=== PATIENT | male | born 1965 | race Caucasian/White ===

== ENCOUNTER → 2016-09-20 | Outpatient (CLI) | payer BC ==
[~2016-09-20] MED LIST: CPR500HP PO; HYDR-4383 PO; LAMO200T38 PO; LAMO25TA PO; LISI-725 PO; METH4PAK PO; MTR500 PO; NXM/40 PO; PRAV20TA PO; PRAV40TA2 PO
[2016-09-22 15:49] LABS: URCREATININE 151.3 MG/DL (>/= 20)
== END | disposition home or self-care (01) ==
LOC: C.LAB 09:02
PROVIDERS: ATTEND Family Medicine
DX: Z51.81 Encounter for therapeutic drug level monitoring (principal); Z79.899 Other long term (current) drug therapy

== ENCOUNTER → 2016-12-24 | Outpatient (CLI) | payer BC ==
[~2016-12-24] MED LIST changes: -METH4PAK PO; -NXM/40 PO
[2016-12-24 14:47] LABS: BASO % 0.4 %; BASO ABS # 0.03 K/uL (0-0.2); COMPLETE YES; EOS % 2.1 %; HEMATOCRIT 42.2 % (42-52); LYMPH ABS # 2.53 K/uL (1.2-3.4); MEAN CELL VOLUME 91.9 fL (80-100); MEAN CORPUSCULAR HEMOGLOBIN 30.3 pg (25-34); MEAN CORPUSCULAR HGB CONC 32.9 g/dl (32-36); MEAN PLATELET VOLUME 9.7 fL (7.4-10.4); MONO % 9.2 %; NEUT % 57.3 %; PLATELET COUNT 295 K/uL (130-400); RED BLOOD COUNT 4.59 M/uL (4.7-6.1); WHITE BLOOD COUNT 8.17 K/uL (4.8-10.8)
[2016-12-24 15:25] LABS: ALT/SGPT 43 U/L (12-78); AST/SGOT 16 U/L (15-37); BLOOD UREA NITROGEN 15 mg/dl (7-18); BUN/CREATININE RATIO 17.1 (10-20); CALCIUM 9.1 mg/dl (8.5-10.1); CARBON DIOXIDE 28 mmol/L (21-32); CHLORIDE 109 mmol/L (98-107); CREATININE 0.88 mg/dl (0.60-1.40); GLUCOSE 80 mg/dl (70-99); MAGNESIUM 2.5 mg/dl (1.8-2.4); POTASSIUM 3.8 mmol/L (3.5-5.1); SODIUM 142 mmol/L (136-145)
[2016-12-24 15:39] LABS: ALB/GLOB RATIO 1.1 (0.9-2); ALKALINE PHOSPHATASE 66 U/L (45-117); FERRITIN 98.5 ng/ml (8.0-388.0)
== END | disposition home or self-care (01) ==
LOC: C.LAB1850 13:55
PROVIDERS: ATTEND Nurse Practitioner Family
DX: M79.1 Myalgia (principal)

== ENCOUNTER → 2016-12-25 | Outpatient (CLI) | payer BC | END | disposition home or self-care (01) | LOC: C.LABSPEC 12-24 11:01 | PROVIDERS: ATTEND Nurse Practitioner Family | DX: J02.9 Acute pharyngitis, unspecified (principal) ==

== ENCOUNTER 2017-02-27 16:10 | Inpatient (IN) | payer BC ==
[~2017-02-27] VITALS: Ht 167.6 cm; Wt 103.0 kg
[~2017-02-27 16:10] MED LIST changes: -PRAV40TA2 PO
[2017-02-27] MEDS ORDERED: LIDOCAINE/EPINEPHRINE 1% 20 ML VIAL ONE (16:43)
[2017-02-27] MEDS ORDERED: CEFTRIAXONE SOD INJ 1 GM ADDVIAL IV STA (17:12)
[2017-02-27] MEDS ORDERED: KETOROLAC TROMETHAMINE 30 MG/ML VIAL IV STA (17:28)
[2017-02-27 17:44] LABS: BASO % 0.2 %; BASO ABS # 0.02 K/uL (0-0.2); COMPLETE YES; EOS % 0.1 %; HEMATOCRIT 44.5 % (42-52); IG% 0.2 %; LYMPH % 18.1 %; LYMPH ABS # 2.26 K/uL (1.2-3.4); MEAN CORPUSCULAR HEMOGLOBIN 30.7 pg (25-34); MEAN CORPUSCULAR HGB CONC 33.7 g/dl (32-36); MEAN PLATELET VOLUME 9.8 fL (7.4-10.4); NEUT % 73.4 %; PLATELET COUNT 287 K/uL (130-400); RED BLOOD COUNT 4.89 M/uL (4.7-6.1); WHITE BLOOD COUNT 12.49 K/uL (4.8-10.8)
[2017-02-27] MEDS ORDERED: LIDO/EPINEPHRINE/SOD BICARB 20 ML VIAL INFIL ONE (17:49)
[2017-02-27] MEDS ORDERED: MoRPHine SULFATE 2 MG/ML CARP IV PRN (18:00)
[2017-02-27 18:04] LABS: BUN/CREATININE RATIO 13.4 (10-20); C-REACTIVE PROTEIN 2.18 mg/dl (0-0.29); CREATININE 0.95 mg/dl (0.60-1.40); POTASSIUM 3.6 mmol/L (3.5-5.1)
[2017-02-27] MEDS ORDERED: MoRPHine SULFATE 4 MG/ML 1 ML CARP\\VIAL IV STA (18:16)
--- NOTE | 2017-02-27 18:24 | DIAGNOSTIC IMAGING REPORT ---
R LOWER EXTREMITY WITHOUT HISTORY: 51 years-old Male knee infection/abscess? Acute infection with concern for possible abscess. COMPARISON: Right knee radiographs 11/05/2016 TECHNIQUE: Multiple axial CT images of the right lower extremity were obtained without IV contrast. A dose lowering technique was used consistent with the principals of ROBBIN. 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 No acute fracture, dislocation or significant osteoarthritis is identified. No intra-articular loose body is identified. No osteochondral defect is seen. There is prominent subcutaneous edema about the knee, most pronounced anteriorly extending both medially and laterally. Focal area of ill-defined fluid involves the prepatellar tissues, 4.1 x 1.4 x 5.3 cm in transverse, AP and craniocaudal dimensions respectively. There is a moderate joint effusion. Ligaments about the knee are grossly unremarkable, however without intra-articular contrast, sensitivity is very low compared to that of MR. There is minimal spurring of the lateral femoral condyle the expected insertion site of the lateral collateral ligament. IMPRESSION: 1. Moderate joint effusion is noted in conjunction with moderate soft tissue swelling about the knee and a focal prepatellar fluid collection measuring up to 4.1 x 1.4 x 5.3 cm. These findings may be posttraumatic with prepatellar bursitis, however are nonspecific. Underlying infectious etiology cannot be determined by imaging alone. 2. 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 3. No acute fracture, dislocation or significant osteoarthritis. The above report was generated using voice recognition software. It may contain grammatical, syntax or spelling errors. Electronically signed by: Len Howard M.D. 02/27/2017 6:22 PM Dictated Date/Time: 02/27/2017 6:15 PM
[2017-02-27] MEDS ORDERED: VANCOMYCIN INJ 2,500 MG in SODIUM CHLORIDE 0.9% 500ML 500 ML IV STA (18:32)
[2017-02-27] MEDS ORDERED: VANCOMYCIN CONSULT ACTIVE PRN (18:45)
[2017-02-27] MEDS ORDERED: VANCOMYCIN INJ 1,500 MG in SODIUM CHLORIDE 0.9% 500ML 500 ML IV ONE (18:45)
[2017-02-27] MEDS ORDERED: PRAV40TA2 PO ×2 (18:45)
--- NOTE | 2017-02-27 18:45 | EMERGENCY ROOM VISIT NOTE ---
History Report prepared by Britt: Tyalor Mills Under the Supervision of: Dr. Alex Loving D.O. First contact with patient: 16:37 Chief Complaint: KNEEPAIN Stated Complaint: KNEE PAIN History of Present Illness The patient is a 51 year old male who presents to the Emergency Room with complaints of constant right knee pain beginning a 2 days ago. The patient states that he was seen at urgent care today for concern of infection in his right knee and was sent to the ED. He reports that he may have had a splinter in the knee and he did try to dig the splinter out. He complains of fever, redness and swelling. The patient denies any vomiting. He notes that he has been on Cipro and Flagyl for the last few days for a clinical diverticulitis. Source of History: patient Position: knee (right) Quality: other (swelling) Timing: constant Associated Symptoms: + fevers, No vomiting Note: Patient complains of redness and swelling. Review of Systems See HPI for pertinent positives & negatives. A total of 10 systems reviewed and were otherwise negative. Past Medical & Surgical Medical Problems: (1) ANEURYSM NOS (2) HX OF LEUKEMIA NEC (3) Hypertension (4) HYPERTENSION NOS (5) Knee bursitis (6) SYNCOPE AND COLLAPSE (7) Urinary problem Family History Diabetes mellitus FH: heart disease FHx: cancer Hypertension Kidney stones Social History Smoking Status: Never Smoker Alcohol Use: none Drug Use: none Marital Status: Occupation Status: employed Current/Historical Medications Scheduled Hydrocodone/Acetaminophen ([place] 10/325 Tab), 1-2 TAB PO Q4HR PRN Lamotrigine (Lamictal), 200 MG PO BID Lamotrigine (Lamictal), 50 MG PO BID Lisinopril (Zestril), 20 MG PO HS Pravastatin (Pravachol ), 20 MG PO HS Allergies Coded Allergies: No Known Allergies (Verified , 03/03/16) Physical Exam Vital Signs Date Time Temp Pulse Resp B/P (MAP) Pulse Ox O2 Delivery O2 Flow Rate FiO2 02/27/17 16:21 37.5 111 17 137/67 95 Room Air Physical Exam CONSTITUTIONAL/VITAL SIGNS: Reviewed / noted above. GENERAL: Non-toxic in appearance. INTEGUMENTARY: Warm, dry, and [place]. HEAD: Normocephalic. EYES: without scleral icterus or trauma. ENT/OROPHARYNX: clear and moist. LYMPHADENOPATHY/NECK: Is supple without lymphadenopathy or meningismus. RESPIRATORY: Lungs clear and equal. CARDIOVASCULAR: Regular rate and rhythm. GI/ABDOMEN: Soft and nontender. No organomegaly or pulsatile mass. No rebound or guarding. Normal bowel sounds. EXTREMITIES: Warm and well perfused. BACK: No CVA tenderness. NEUROLOGICAL: Diffuse erythema to the anterior portion of the right knee, palpable fluid and tenderness in prepatellar bursa. PSYCHIATRIC: normal affect. MUSCULOSKELETAL: Normally developed with good muscle tone. 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 No acute fracture, dislocation or significant osteoarthritis is identified. No intra-articular loose body is identified. No osteochondral defect is seen. There is prominent subcutaneous edema about the knee, most pronounced anteriorly extending both medially and laterally. Focal area of ill-defined fluid involves the prepatellar tissues, 4.1 x 1.4 x 5.3 cm in transverse, AP and craniocaudal dimensions respectively. There is a moderate joint effusion. Ligaments about the knee are grossly unremarkable, however without intra-articular contrast, sensitivity is very low compared to that of MR. There is minimal spurring of the lateral femoral condyle the expected insertion site of the lateral collateral ligament. IMPRESSION: 1. Moderate joint effusion is noted in conjunction with moderate soft tissue swelling about the knee and a focal prepatellar fluid collection measuring up to 4.1 x 1.4 x 5.3 cm. These findings may be posttraumatic with prepatellar bursitis, however are nonspecific. Underlying infectious etiology cannot be determined by imaging alone. 2. 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 3. No acute fracture, dislocation or significant osteoarthritis. The above report was generated using voice recognition software. It may contain grammatical, syntax or spelling errors. Electronically signed by: Len Howard M.D. 02/27/2017 6:22 PM Dictated Date/Time: 02/27/2017 6:15 PM Laboratory Results 02/27/17 17:18 Red Blood Count 4.89, Mean Corpuscular Volume 91.0, Mean Corpuscular Hemoglobin 30.7, Mean Corpuscular Hemoglobin Concent 33.7, Mean Platelet Volume 9.8, Neutrophils (%) (Auto) 73.4, Lymphocytes (%) (Auto) 18.1, Monocytes (%) (Auto) 8.0, Eosinophils (%) (Auto) 0.1, Basophils (%) (Auto) 0.2, Neutrophils # (Auto) 9.18, Lymphocytes # (Auto) 2.26, Monocytes # (Auto) 1.00, Eosinophils # (Auto) 0.01, Basophils # (Auto) 0.02 02/27/17 17:18 Test 02/27/17 17:18 White Blood Count 12.49 K/uL (4.8-10.8) Red Blood Count 4.89 M/uL (4.7-6.1) Hemoglobin 15.0 g/dL (14.0-18.0) Hematocrit 44.5 % (42-52) Mean Corpuscular Volume 91.0 fL (80-100) Mean Corpuscular Hemoglobin 30.7 pg (25-34) Mean Corpuscular Hemoglobin Concent 33.7 g/dl (32-36) Platelet Count 287 K/uL (130-400) Mean Platelet Volume 9.8 fL (7.4-10.4) Neutrophils (%) (Auto) 73.4 % Lymphocytes (%) (Auto) 18.1 % Monocytes (%) (Auto) 8.0 % Eosinophils (%) (Auto) 0.1 % Basophils (%) (Auto) 0.2 % Neutrophils # (Auto) 9.18 K/uL (1.4-6.5) Lymphocytes # (Auto) 2.26 K/uL (1.2-3.4) Monocytes # (Auto) 1.00 K/uL (0.11-0.59) Eosinophils # (Auto) 0.01 K/uL (0-0.5) Basophils # (Auto) 0.02 K/uL (0-0.2) RDW Standard Deviation 42.9 fL (36.4-46.3) RDW Coefficient of Variation 12.9 % (11.5-14.5) Immature Granulocyte % (Auto) 0.2 % Immature Granulocyte # (Auto) 0.02 K/uL (0.00-0.02) Erythrocyte Sedimentation Rate 17 mm/hr (0-14) Anion Gap 6.0 mmol/L (3-11) Est Creatinine Clear Calc Drug Dose 108.1 ml/min Estimated GFR () 105.5 Estimated GFR (Non- 91.0 BUN/Creatinine Ratio 13.4 (10-20) Calcium Level 9.0 mg/dl (8.5-10.1) C-Reactive Protein 2.18 mg/dl (0-0.29) Laboratory results as stated above per my review. Medications Administered Medications (Trade) Dose Ordered Sig/Nina Route Start Time Stop Time Status Last Admin Dose Admin Ceftriaxone Sodium (Rocephin Inj) 2 gm NOW STAT IV 02/27/17 17:12 02/27/17 17:14 DC 02/27/17 17:12 2 GM Ketorolac Tromethamine (Toradol Inj) 30 mg NOW STAT IV 02/27/17 17:28 02/27/17 17:29 DC 02/27/17 18:12 30 MG Morphine Sulfate (MoRPHine SULFATE INJ) 4 mg NOW STAT IV 02/27/17 18:16 02/27/17 18:18 DC 02/27/17 18:25 4 MG ED Course 1637: Previous medical records were reviewed. The patient was evaluated in room C8. A complete history and physical examination was performed. 1643: Lidocaine/Epinephine 20ml. 1712: Rocephin Inj 2gm IV. 1724: Discussed the patient's case with Dr. Nixon. The patient will be evaluated for further treatment and disposition. 1728: Toradol Inj 30mg IV. 1729: Lidocaine/Epinephrine 20ml INFIL. 1831: On reevaluation, the patient is doing well. I discussed the results and findings with the patient. He verbalized agreement of the treatment plan. I spoke with Dr. Nixon. The patient will be evaluated for further management and care. Medical Decision Differential diagnosis: Etiologies such as cellulitis, abscess, MRSA infection, DVT, necrotizing fasciitis, dermatitis, drug eruption, as well as others were entertained. This is a 51-year-old male who presents to the ED with a chief complaint of a right knee infection. The patient states that he had onset of symptoms on Thursday, 2 days ago. He states that he had a small pimple that he thought might of been associated with a small splinter in the lower aspect of his right anterior knee. The patient states that he tried digging it out but did not find anything. Over the past 2 days, he has developed increasing redness and discomfort. He also reports that he has been on Cipro and Flagyl for the past 6 days for diverticulitis that was diagnosed clinically. The patient denies any vomiting but reports a fever at urgent care today of 101. His vital signs here are stable. He is currently afebrile. The patient's exam reveals red swollen right knee with diffuse anterior erythema and a palpable fluctuant suggesting possible fluid in the bursa. I did attempt drainage of this but could not aspirate any fluid. Anterior approach over the patella was attempted without success. The knee joint was not aspirated. He has range of motion with the right joint that does not appear to cause any discomfort with movement suggesting that he does not have a septic joint. A CT scan of the right knee was performed and the results are noted above. Orthopedics was consulted. The white blood cell count was 12. Chemistry panel was unremarkable. Blood cultures have been obtained. The patient was seen by orthopedics here in the emergency department they attempted additional aspiration of the bursa. The patient is being admitted. He was treated with IV Rocephin and IV vancomycin. Medication Reconcilliation Current Medication List: was personally reviewed by me Blood Pressure Screening Patient's blood pressure: Elevated blood pressure Blood pressure disposition: Elevated BP felt to be situational Consults Time Called: 172 Consulting Physician: Dr. Nixon Returned Call: [phone] Discussed the patient's case with Dr. Nixon. The patient will be evaluated for further treatment and disposition. Impression Primary Impression: Septic bursitis Additional Impression: Cellulitis of right knee Scribe Attestation The scribe's documentation has been prepared under my direction and personally reviewed by me in its entirety. I confirm that the note above accurately reflects all work, treatment, procedures, and medical decision making performed by me. Departure Information Dispostion Being Evaluated By Hospitalist Referrals Berhane Humphrey III, CRNP (PCP) Patient Instructions My [facility] Problem Qualifiers
--- NOTE | 2017-02-27 19:19 | History and Physical ---
History & Physical Date & Time of Service: Feb 27, 2017 at 19:09 Chief Complaint: Knee Pain Primary Care Physician: Berhane Humphrey III, CRNP History of Present Illness 51-year-old male who thought he got a splinter in his knee on Thursday of this week. He dug in in the wound with his knife at home and was unable get a splint throughout. The next day he noticed some area lines like a pimple and was able squeezed out some pus. Since that time his knee is got progressively more painful and he's developed redness in the last day. He went to urgent care earlier today close to his home town who sent him to [facility] emergency room. Patient states he's been feverish at today. His temperature measured at the outside facility was 101F. He's been limping on his leg. She's never had an infection like this before. He is able to move his knee without too much pain. 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 No numbness or tingling down the leg. The pain is located in the anterior aspect of the knee. Sharp in character. Past Medical/Surgical History Medical Problems: (1) ANEURYSM NOS Status: Resolved (2) HX OF LEUKEMIA NEC Status: Resolved (3) Hypertension Status: Chronic (4) HYPERTENSION NOS Status: Resolved (5) SYNCOPE AND COLLAPSE Status: Resolved (6) Urinary problem Status: Chronic Family History Diabetes mellitus FH: heart disease FHx: cancer Hypertension Kidney stones Social History Smoking Status: Never Smoker Drug Use: none Marital Status: Housing status: lives with family Occupational Status: employed Immunizations History of Influenza Vaccine: Unknown History of Tetanus Vaccine?: Unknown History of Pneumococcal: Unknown History of Hepatitis B Vaccine: Unknown Multi-Drug Resistant Organisms History of MDRO: No Allergies Coded Allergies: No Known Allergies (Verified , 02/27/17) Home Medications Scheduled Ciprofloxacin (Ciprofloxacin HCl), 1 TAB PO BID Hydrocodone/Acetaminophen ([place] 10/325 Tab), 1-2 TAB PO Q4HR PRN Lamotrigine (Lamictal), 200 MG PO BID Lamotrigine (Lamictal), 50 MG PO BID Lisinopril (Zestril), 20 MG PO HS Metronidazole (Metronidazole), 1 TAB PO TID Pravastatin Sodium (Pravastatin Sodium), 1 TAB PO HS Review of Systems Constitutional: + fever, + chills Eyes: No worsening of vision ENT: No nasal symptoms Respiratory: No cough Cardiovascular: No chest pain Abdomen: No pain Musculoskeletal: + joint pain, + swelling Genitourinary - Male: No hematuria Neurologic: No numbness/tingling Psychiatric: No substance abuse Endocrine: No fatigue Hematologic / Lymphatic: No abnormal bleeding/bruising Integumentary: No rash Allergic / Immunologic: No food allergies Physical Exam Vital Signs Date Time Temp Pulse Resp B/P (MAP) Pulse Ox O2 Delivery O2 Flow Rate FiO2 02/27/17 18:24 36.9 85 17 134/76 95 Room Air 02/27/17 16:21 37.5 111 17 137/67 95 Room Air Extremities/Musculoskelatal: + inflammation (examination of his right knee reveals swelling in the prepatellar bursa. He has blackened area where he was taking for a splinter. There is some induration about 1 inch diameter area around this. He is able to move his knee from 0-100 range of motion. I he has walks with a antalgic gait. Sensory intact to light touch throughout. Skin is warm and well perfused.) Diagnostics Laboratory Results Results Past 24 Hours Test 02/27/17 17:18 Range/Units White Blood Count 12.49 4.8-10.8 K/uL Red Blood Count 4.89 4.7-6.1 M/uL Hemoglobin 15.0 14.0-18.0 g/dL Hematocrit 44.5 42-52 % Mean Corpuscular Volume 91.0 80-100 fL Mean Corpuscular Hemoglobin 30.7 25-34 pg Mean Corpuscular Hemoglobin Concent 33.7 32-36 g/dl Platelet Count 287 130-400 K/uL Mean Platelet Volume 9.8 7.4-10.4 fL Neutrophils (%) (Auto) 73.4 % Lymphocytes (%) (Auto) 18.1 % Monocytes (%) (Auto) 8.0 % Eosinophils (%) (Auto) 0.1 % Basophils (%) (Auto) 0.2 % Neutrophils # (Auto) 9.18 1.4-6.5 K/uL Lymphocytes # (Auto) 2.26 1.2-3.4 K/uL Monocytes # (Auto) 1.00 0.11-0.59 K/uL Eosinophils # (Auto) 0.01 0-0.5 K/uL Basophils # (Auto) 0.02 0-0.2 K/uL RDW Standard Deviation 42.9 36.4-46.3 fL RDW Coefficient of Variation 12.9 11.5-14.5 % Immature Granulocyte % (Auto) 0.2 % Immature Granulocyte # (Auto) 0.02 0.00-0.02 K/uL Erythrocyte Sedimentation Rate 17 0-14 mm/hr Sodium Level 139 136-145 mmol/L Potassium Level 3.6 3.5-5.1 mmol/L Chloride Level 105 98-107 mmol/L Carbon Dioxide Level 28 21-32 mmol/L Anion Gap 6.0 3-11 mmol/L Blood Urea Nitrogen 13 7-18 mg/dl Creatinine 0.95 0.60-1.40 mg/dl Est Creatinine Clear Calc Drug Dose 108.1 ml/min Estimated GFR () 105.5 Estimated GFR (Non- 91.0 BUN/Creatinine Ratio 13.4 10-20 Random Glucose 100 70-99 mg/dl Calcium Level 9.0 8.5-10.1 mg/dl C-Reactive Protein 2.18 0-0.29 mg/dl Microbiology Results 02/27/17 Blood Culture, Received Pending 02/27/17 Blood Culture, Received Pending Diagnostic Radiology We get a CAT scan of his leg. There is no air in the soft tissues. There is soft tissue stranding and edema in the prepatellar bursa. Impression Assessment and Plan Impression right knee septic prepatellar bursitis. Plan after informed consent was obtained we prepped the leg with Betadine. A 2 cm horizontal incision was made over the area of maximum induration. The prepatellar bursa was explored with a hemostat to break up any loculations. We irrigated the prepatellar bursa with 60 mL syringe and 1 L of normal saline. We then packed the wound with approximately 12 inches of quarter inch wound packing strips. The wound was covered with 4 x 4's ABDs Kerlix and an Delbert wrap. Number next patient be admitted to hospital. His skin to be on IV vancomycin. Pharmacy will dose this. We'll get daily labs to monitor his response he antibiotics. We did take cultures from his wound to his sats which will follow. He also had blood cultures in the ER. Pain will be Mica for pain control with IV morphine when necessary. VTE Prophylaxis VTE Risk Assessment Done? Y/N: Yes Risk Level: Low
[2017-02-27 19:20] VITALS: BP 119/76; PULSE 84; TEMP 36.6; O2SAT 94
[2017-02-27 19:30] VITALS: BP 119/76; PULSE 84; TEMP 36.6; O2SAT 94; Ht 167.6 cm; Wt 103.0 kg
--- NOTE | 2017-02-27 19:35 | Discharge Instructions ---
Discharge Instructions Date of Service Feb 27, 2017. Admission Reason for Admission: R knee septic prepatellar bursitis Discharge Discharge Diagnosis / Problem: R knee septic prepatellar bursitis Discharge Goals Goal(s): Decrease discomfort, Improve function, Increase independence Activity Recommendations Activity Limitations: per Instructions/Follow-up section Lifting Limitations: no more than 25 pounds Exercise/Sports Limitations: gradually increase as tolerated May Resume Sexual Activity: when tolerated Shower/Bathe: no limitations Driving or Machine Use: resume 3 days after discharge Weightbearing Status: Right weightbearing (as tolerated) . Current Hospital Diet Patient's current hospital diet: Regular Diet Discharge Diet Recommended Diet: Regular Diet Procedures Procedures Performed: I&D R knee prepatellar bursa Pending Studies Studies pending at discharge: yes List of pending studies: final culture results Work Instructions Additional Instructions: Off work for 1 week, until 03/07/2017 Medical Emergencies . Who to Call and When: Medical Emergencies: If at any time you feel your situation is an emergency, please call 911 immediately. . Non-Emergent Contact Non-Emergency issues call your: Primary Care Provider Call Non-Emergent contact if: temperature is above 101.5, your pain is worsening, wound has increased redness . "Provider Documentation" section prepared by Álvaro Echols. . VTE Core Measure Inpt VTE Proph given/why not?: Other Anticoagulation (foot pumps) [place] Drug Monitoring Program Search Results: patient reviewed within database
--- NOTE | 2017-02-27 19:59 | Pharmacy Progress Note ---
Pharmacy Abx Initial Consult Date of Service Feb 27, 2017. Pharmacy Dosing Scope Date of Consult: 02/27/17 Consultation requested by: Adilia Stanton Pharmacy is consulted to initiate Vancomycin IV dosing therapy, order appropriate labs and adjust drug dose/frequency. Subjective The patient is a 51 year old male admitted on Feb 27, 2017 at 18:11. Objective Height (Feet): 5 Height (Inches): 10.00 Weight (Kilograms): 103.000 Vital Signs (Past 12Hrs) Vital Signs Past 12 Hours Date Time Temp Pulse Resp B/P (MAP) Pulse Ox O2 Delivery O2 Flow Rate FiO2 02/27/17 19:20 36.6 84 18 119/76 (90) 94 Room Air 02/27/17 18:24 36.9 85 17 134/76 95 Room Air 02/27/17 16:21 37.5 111 17 137/67 95 Room Air Lab Results (24Hrs) Laboratory Tests (24 Hours) Test 02/27/17 17:18 C-Reactive Protein 2.18 mg/dl (0-0.29) H Erythrocyte Sedimentation Rate 17 mm/hr (0-14) H White Blood Count 12.49 K/uL (4.8-10.8) H Red Blood Count 4.89 M/uL (4.7-6.1) Hemoglobin 15.0 g/dL (14.0-18.0) Hematocrit 44.5 % (42-52) Mean Corpuscular Volume 91.0 fL (80-100) Mean Corpuscular Hemoglobin 30.7 pg (25-34) Mean Corpuscular Hemoglobin Concent 33.7 g/dl (32-36) Platelet Count 287 K/uL (130-400) Mean Platelet Volume 9.8 fL (7.4-10.4) Neutrophils (%) (Auto) 73.4 % Lymphocytes (%) (Auto) 18.1 % Monocytes (%) (Auto) 8.0 % Eosinophils (%) (Auto) 0.1 % Basophils (%) (Auto) 0.2 % Neutrophils # (Auto) 9.18 K/uL (1.4-6.5) H Lymphocytes # (Auto) 2.26 K/uL (1.2-3.4) Monocytes # (Auto) 1.00 K/uL (0.11-0.59) H Eosinophils # (Auto) 0.01 K/uL (0-0.5) Basophils # (Auto) 0.02 K/uL (0-0.2) Micro Results Date/Time Source Procedure Growth Status 02/27/17 17:25 Blood Blood Culture Pending Received 02/27/17 17:18 Blood Blood Culture Pending Received 02/27/17 19:19 Abscess Knee Right Gram Stain Pending Ordered 02/27/17 19:19 Abscess Knee Right Bacterial Culture Pending Ordered Risk Factors for Resistance * Antimicrobial use within the last 90 days, Yesika Gracia for diverticulitis Assessment & Plan Assessment 51 year old male initiated on IV vancomycin for knee cellulitis Plan Vancomycin IV * Loading dose: 2,500 mg (25 mg/kg) * Maintenance dose: 1,500 mg IV (~14 mg/kg) every 10 hours * Goal trough level for SST : 10 to 20 mcg/mL depending on c/s * Trough level ordered for 03/01/17 @ 1200 {prior to the 4th maintenance dose} Pharmacy will continue to follow and will adjust dose/frequency as necessary. Thank you.
[2017-02-27] MEDS ORDERED: PRAVASTATIN SOD 20 MG TAB PO SCH (21:00)
[2017-02-27 21:42] VITALS: BP 118/70; PULSE 75; O2SAT 96
[2017-02-27] MEDS: CIPROFLOXACIN 500 MG TAB PO SCH (21:50)
[2017-02-27] MEDS: DOCUSATE SODIUM 100 MG CAP PO SCH (21:50)
[2017-02-27] MEDS: METRONIDAZOLE 500 MG TAB PO SCH (21:50)
[2017-02-27] MEDS: HYDROCODONE/ACETAMI 10/325 TAB PO PRN (21:51)
[2017-02-27] MEDS: LISINOPRIL 20 MG TAB PO SCH (21:53)
[2017-02-27] MEDS: PRAVASTATIN SOD 40 MG TAB PO SCH (21:53)
[2017-02-27 23:00] VITALS: BP 121/69; PULSE 65; TEMP 36.8; O2SAT 93
[2017-02-28 03:15] VITALS: BP 120/74; PULSE 56; TEMP 36.8; O2SAT 94
[2017-02-28] MEDS: VANCOMYCIN INJ 1,500 MG in SODIUM CHLORIDE 0.9% 500ML 500 ML IV SCH ×2 (05:08→15:34)
[2017-02-28] MEDS: HYDROCODONE/ACETAMI 10/325 TAB PO PRN ×5 (05:08→23:23)
[2017-02-28 07:10] LABS: HEMATOCRIT 38.9 % (42-52); MEAN CELL VOLUME 92.8 fL (80-100); MEAN CORPUSCULAR HEMOGLOBIN 30.3 pg (25-34); MEAN CORPUSCULAR HGB CONC 32.6 g/dl (32-36); MEAN PLATELET VOLUME 9.8 fL (7.4-10.4); PLATELET COUNT 255 K/uL (130-400); RED BLOOD COUNT 4.19 M/uL (4.7-6.1); WHITE BLOOD COUNT 11.09 K/uL (4.8-10.8)
[2017-02-28 08:00] VITALS: BP 126/75; PULSE 63; TEMP 36.8; O2SAT 94
[2017-02-28] MEDS: CIPROFLOXACIN 500 MG TAB PO SCH ×2 (08:51→21:13)
[2017-02-28] MEDS: METRONIDAZOLE 500 MG TAB PO SCH ×3 (08:52→21:13)
[2017-02-28] MEDS: DOCUSATE SODIUM 100 MG CAP PO SCH ×2 (08:52→21:13)
[2017-02-28] MEDS: MoRPHine SULFATE 4 MG/ML 1 ML CARP\\VIAL IV PRN (11:03)
--- NOTE | 2017-02-28 11:24 | Progress Note ---
Progress Note Date of Service Feb 28, 2017. Progress Note Subjective: Mr. Armstrong did well overnight. He doesn't have any fevers. He says his overall body aches feel better than they were yesterday. However he still has some discomfort in his knee. Objective his dressings taken down on the right knee. He still some redness in the prepatellar bursa area. However there is no extending cellulitis onto his thigh or down onto his calf. The wound packing strip is removed. There is no purulent drainage from the wound. Approximately 3 inches of new packing strip was inserted. The wound was covered with new 4 x 4's Kerlix and an Delbert wrap. He's distally neurovascularly intact. He is able tolerate small range of motion. He is able to put some weight on the leg but this is uncomfortable for him. Results reviewed CRP is slightly elevated this morning compared yesterday at 3.3. However his white count is down from 12-11. His Gram stain from the wound cultures retook yesterday are both showing gram-positive cocci but we don' t have the final results back yet. Assessment and plan 51-year-old male with septic right knee prepatellar bursitis improving on IV vancomycin. Patient will continue on vancomycin dosed per pharmacy's recommendation. He has a trough scheduled for tomorrow. We'll continue to follow his cultures. He'll work with physical therapy. He is weightbearing as tolerated with an assistive device. They will assess whether he is safer with crutches or a walker. He can do range of motion as tolerated. Discharge will be pending the results of his culture as well as clinical improvement in his pain and function as well as laboratories showing his inflammatory markers improving. He may be able to discharge as soon as tomorrow but also could be here until Thursday or Thursday.
[2017-02-28 12:05] VITALS: BP 115/68; PULSE 56; TEMP 36.6; O2SAT 96
[2017-02-28 15:00] VITALS: BP 107/58; PULSE 67; TEMP 37; O2SAT 96
[2017-02-28] MEDS ORDERED: NURSING VERBAL MED ORDER ONE (19:30)
[2017-02-28] MEDS ORDERED: NICOTINE 14 MG/24 HR TDSY TD SCH (20:00)
[2017-02-28 21:06] VITALS: BP 136/82; PULSE 66; O2SAT 95
[2017-02-28] MEDS: NICOTINE 21 MG/24 HR TDSY EXT SCH (21:11)
[2017-02-28] MEDS: LISINOPRIL 20 MG TAB PO SCH (21:14)
[2017-02-28] MEDS: PRAVASTATIN SOD 40 MG TAB PO SCH (21:14)
[2017-02-28 23:29] VITALS: BP 132/79; PULSE 61; TEMP 36.5; O2SAT 93
[2017-03-01] MEDS: VANCOMYCIN INJ 1,500 MG in SODIUM CHLORIDE 0.9% 500ML 500 ML IV SCH (01:30)
[2017-03-01 05:58] LABS: HEMATOCRIT 37.6 % (42-52); MEAN CELL VOLUME 93.3 fL (80-100); MEAN CORPUSCULAR HGB CONC 32.2 g/dl (32-36); MEAN PLATELET VOLUME 9.7 fL (7.4-10.4); PLATELET COUNT 240 K/uL (130-400); RED BLOOD COUNT 4.03 M/uL (4.7-6.1); WHITE BLOOD COUNT 10.24 K/uL (4.8-10.8)
[2017-03-01] MEDS: HYDROCODONE/ACETAMI 10/325 TAB PO PRN ×4 (06:38→21:07)
[2017-03-01 06:51] VITALS: BP 128/74; PULSE 67; TEMP 36.6; O2SAT 97
[2017-03-01] MEDS: DOCUSATE SODIUM 100 MG CAP PO SCH ×2 (09:00→21:11)
[2017-03-01] MEDS: METRONIDAZOLE 500 MG TAB PO SCH ×3 (10:31→21:11)
[2017-03-01] MEDS: CIPROFLOXACIN 500 MG TAB PO SCH ×2 (10:31→21:10)
[2017-03-01 11:13] LABS: CREATININE 0.71 mg/dl (0.60-1.40)
[2017-03-01] MEDS ORDERED: ONDANSETRON INJ 2 MG/ML 2 ML VIAL ONE (11:28)
[2017-03-01] MEDS ORDERED: ONDANSETRON INJ 2 MG/ML 2 ML VIAL IV PRN (11:30)
[2017-03-01] MEDS ORDERED: VANCOMYCIN TROUGH SCH (11:30)
[2017-03-01] MEDS: MoRPHine SULFATE 4 MG/ML 1 ML CARP\\VIAL IV PRN (11:33)
--- NOTE | 2017-03-01 11:52 | Orthopedic Progress Note ---
Orthopedic Progress Note Date of Service Mar 01, 2017. Subjective Reports: feeling well, complaints (warmth thigh, unable to weight bear right leg ), nausea / vomiting (mild nausea, no vomiting), Denies: chest pain, SOB, calf pain Additional Notes: States that he's able to move his knee, but hard to weight bear on it due to pain Objective calves soft nontender, N/V intact, capillary refill less than 2 sec., incision C /D/I, A&O x3, toes mobile VSS, afebrile, dressing with scant bloody serous drainage. Packing in place, removed and new iodoform packing applied to right prepatellar bursa. Erythema right thigh and right calf suggestive of cellulitis. No calf tenderness with palpation. No fluctuance palpated, no purulence evacuated from opening in bursa. Warmth to skin. no active drainage. Moves hip and ankle without pain Date Time Temp Pulse Resp B/P (MAP) Pulse Ox O2 Delivery O2 Flow Rate FiO2 03/01/17 07:30 Room Air 03/01/17 06:51 36.6 67 17 128/74 (92) 97 Room Air 02/28/17 23:29 36.5 61 17 132/79 (96) 93 Room Air 02/28/17 23:17 Room Air 02/28/17 21:06 66 136/82 (100) 95 Room Air 02/28/17 16:30 Room Air 02/28/17 15:00 37.0 67 20 107/58 (74) 96 Room Air 02/28/17 12:05 36.6 56 16 115/68 (84) 96 Room Air Laboratory Results 24 Hours: Test 03/01/17 05:30 Hematocrit 37.6 % Hemoglobin 12.1 g/dL Assessment & Plan Assessment: septic right prepatellar bursitis. Cultures resulted with MRSA. s/p I&D at bedside 02/27/17 Plan: Continue elevation right leg. Wound re-packed today. Continue IV Vanco - trough low, pharmacy notified and will increase vanco dose. Zofran ordered for nausea Will consult ID for antibiotic dosing and assistance Continue OOB as tolerated. Allowed WBAT RLE MARY stocking right lower extremity to help with swelling. Regular diet. Seen and evaluated by Dr. Echols today. Will recheck in AM.
[2017-03-01] MEDS ORDERED: VANCOMYCIN INJ 1,650 MG in SODIUM CHLORIDE 0.9% 500ML 500 ML IV SCH (12:30)
[2017-03-01] MEDS ORDERED: VANCOMYCIN INJ 2,000 MG in SODIUM CHLORIDE 0.9% 500ML 500 ML IV SCH (12:30)
--- NOTE | 2017-03-01 14:41 | Pharmacy Progress Note ---
Pharmacy Abx Dose Progress Nt Date of Service Mar 01, 2017. Pharmacy Dosing Scope The patient WAS receiving the following antimicrobial agents per Pharmacy consult: Vancomycin 1500 mg IV every 10 hours. Dosing is now changed due to low trough. Objective Height (Feet): 5 Height (Inches): 6.00 Weight (Kilograms): 103.000 Vital Signs (Past 12Hrs) Vital Signs Past 12 Hours Date Time Temp Pulse Resp B/P (MAP) Pulse Ox O2 Delivery O2 Flow Rate FiO2 03/01/17 07:30 Room Air 03/01/17 06:51 36.6 67 17 128/74 (92) 97 Room Air Lab Results (24Hrs) Item Value Date Time Vancomycin Level Trough 11.3 mcg/ml 03/01/17 1041 Laboratory Tests (24 Hours) Test 03/01/17 05:30 C-Reactive Protein 7.41 mg/dl (0-0.29) H White Blood Count 10.24 K/uL (4.8-10.8) Micro Results Date/Time Source Procedure Growth Status 02/27/17 17:25 Blood Blood Culture - Preliminary NO GROWTH TO DATE. Resulted 02/27/17 17:18 Blood Blood Culture - Preliminary NO GROWTH TO DATE. Resulted 02/27/17 19:00 Abscess Knee Right Gram Stain - Final Resulted 02/27/17 19:00 Bacterial Culture - Preliminary Staphylococcus Aureus Resulted 02/27/17 19:00 Abscess Knee Right Gram Stain - Final Resulted 02/27/17 19:00 Bacterial Culture - Preliminary Staphylococcus Aureus Resulted Assessment & Plan Assessment 51 year old male receiving Vancomycin for treatment of Cellulitis. Day # 3/10 of antimicrobial therapy Plan Vancomycin IV * Trough level of 11.3 mcg/mL drawn at 1041 today is subtherapeutic. * The level was drawn around an hour early so the true trough is probably even lower than 11.3. * Dr. Echols called and said he would like to see a trough closer to 20 mcg/ ml since the Cellulitis is worsening and moving up his leg. Also note that this is a MRSA. * Hence a small load of Vanco 2000 mg (19 mg/kg) IV x 1 was ordered for 1230 today (given at 1300). * Further maintenance dose increased to 1650 mg IV Q8h starting at 2030 today. * Renal function remains stable with Crcl > 100 ml/min. * If patient was to get discharged soon, I would recommend Daptomycin instead of Vancomycin since this would allow for once daily dosing rather than every 8 hour dosing. If the bone/joint is involved then 6 mg/kg dose of Daptomycin would be appropriate. * Trough Vanco level ordered for: 03/02 at 1200. Pharmacy will continue to follow and will adjust dose/frequency as necessary. Thank you.
[2017-03-01 15:00] VITALS: BP 103/60; PULSE 66; TEMP 36.9; O2SAT 95
[2017-03-01 15:30] VITALS: O2SAT 95
[2017-03-01 20:07] VITALS: BP 125/77; PULSE 67; TEMP 36.8; O2SAT 93
[2017-03-01] MEDS: NICOTINE 21 MG/24 HR TDSY EXT SCH (21:00)
[2017-03-01] MEDS: PRAVASTATIN SOD 40 MG TAB PO SCH (21:10)
[2017-03-01] MEDS: LISINOPRIL 20 MG TAB PO SCH (21:10)
[2017-03-01] MEDS: VANCOMYCIN INJ 1,650 MG in SODIUM CHLORIDE 0.9% 500ML 500 ML IV SCH (21:17)
[2017-03-01 23:49] VITALS: BP 126/75; PULSE 67; TEMP 36.6; O2SAT 91
[2017-03-02] MEDS: HYDROCODONE/ACETAMI 10/325 TAB PO PRN ×4 (01:35→20:33)
[2017-03-02] MEDS: VANCOMYCIN INJ 1,650 MG in SODIUM CHLORIDE 0.9% 500ML 500 ML IV SCH ×3 (04:37→20:32)
[2017-03-02 06:17] LABS: HEMATOCRIT 37.6 % (42-52); MEAN CELL VOLUME 93.5 fL (80-100); MEAN CORPUSCULAR HEMOGLOBIN 30.3 pg (25-34); MEAN CORPUSCULAR HGB CONC 32.4 g/dl (32-36); MEAN PLATELET VOLUME 9.5 fL (7.4-10.4); PLATELET COUNT 251 K/uL (130-400); RED BLOOD COUNT 4.02 M/uL (4.7-6.1); WHITE BLOOD COUNT 9.23 K/uL (4.8-10.8)
[2017-03-02 06:47] LABS: CREATININE 0.86 mg/dl (0.60-1.40)
[2017-03-02 06:48] LABS: C-REACTIVE PROTEIN 6.44 mg/dl (0-0.29)
[2017-03-02 07:09] VITALS: BP 113/69; PULSE 55; TEMP 36.6; O2SAT 97
[2017-03-02] MEDS: DOCUSATE SODIUM 100 MG CAP PO SCH ×2 (09:00→20:33)
[2017-03-02] MEDS: METRONIDAZOLE 500 MG TAB PO SCH (09:40)
[2017-03-02] MEDS: CIPROFLOXACIN 500 MG TAB PO SCH (09:42)
[2017-03-02 09:45] VITALS: TEMP 36.4
--- NOTE | 2017-03-02 10:22 | Progress Note ---
Progress Note Date of Service Mar 02, 2017. Progress Note ID Consult Dictated [id number] A/P: 1. Septic Arthritis R knee with abscess - MRSA -cont vanco, stop other abx. -suspect will need additional washout -Will follow, thank you
[2017-03-02] MEDS ORDERED: VANCOMYCIN TROUGH SCH (12:00)
--- NOTE | 2017-03-02 12:47 | INFECT. DISEASE CONSULTATION ---
DATE OF CONSULTATION: 03/02/2017 HISTORY OF PRESENT ILLNESS: This is a 51-year-old gentleman who was admitted after he had worsening right knee pain. 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 Subsequent to that, he had worsening pain, swelling and erythema. He was admitted to the hospital and placed on vancomycin and Flagyl. His white blood cell count has been normal recently at 9.2. His sed rate is mildly elevated at 17. He was found on CAT scan on the to have a 4.1 x 1.4 x 5.3 cm collection. He underwent a bedside I&D and culture from that is growing community-acquired MRSA. He remains on vancomycin. On my examination today, he states he is in significant pain. He continues to have tightness in his knee with erythema, warmth and significant pain. He is ambulating with a walker, but states this has been difficult. He is tolerating his antibiotics well. He has no chest pain, cough, shortness of breath, nausea, vomiting or diarrhea. He is eating without difficulty. He is tolerating antibiotics well. His blood cultures were obtained in the ER and are negative. His remaining review of systems is reviewed and is unremarkable. PAST MEDICAL HISTORY: Significant for history of leukemia, aneurysm, hypertension, and syncopal episodes. FAMILY HISTORY: Noncontributory. SOCIAL HISTORY: Negative for tobacco use, alcohol use or drug use. ALLERGIES: He has no known drug allergies. CURRENT MEDICATIONS: Include vancomycin, Zofran, nicotine patch, Colace, Lamictal, Zestril , Cipro, Flagyl, Pravachol, morphine, and Percocet. PHYSICAL EXAMINATION: VITAL SIGNS: He is afebrile, pulse 55, respiratory rate is 17, blood pressure is 113/69, and oxygen saturation is 97% on room air. GENERAL: He is awake, alert and oriented x3; he is in no acute distress. HEENT: Mucous membranes are moist. Extraocular muscles are intact. HEART: Regular. LUNGS: Clear. ABDOMEN: Soft, nondistended. EXTREMITIES: There is significant tenderness, warmth, erythema and induration of the right knee. Dressing is clean, dry and intact. LABORATORY STUDIES: CBC today reveals a white blood cell count of 9.2, hemoglobin 12.2 and platelets are 251. Chemistry panel reveals a creatinine of 0.86. CRP is 6.44. Vancomycin level yesterday was 11.1 and 2 separate wound cultures are growing community-acquired MRSA. Blood cultures from the are negative. IMAGING DATA: Lower extremity CT is as above. ASSESSMENT AND PLAN: 1. Septic arthritis with methicillin-resistant staphylococcus aureus. 2. Leukocytosis, resolved. At this time, he can be continued on vancomycin and his additional antibiotics will be discontinued. I suspect he will need additional drainage procedure We will follow along with you. Thank you for this consultation. AKBAR
--- NOTE | 2017-03-02 13:07 | Pharmacy Progress Note ---
Pharmacy Abx Dose Short Note Date of Service Mar 02, 2017. Assessment & Plan Assessment 51 year old male receiving vancomycin for treatment of cellulitis Day # 4 of antimicrobial therapy. Per Dr. Echols- target trough closer to 20 mcg/mL Plan Vancomycin * Trough level of 18.7 mcg/mL is therapeutic * Continue dose of 1650 mg q8H * Goal trough level for 15-20 mcg/mL * Trough level ordered for 03/04 @0400 Pharmacy will continue to follow and will adjust dose/frequency as necessary. Thank you.
[2017-03-02 16:50] VITALS: BP 136/71; PULSE 71; TEMP 36.8; O2SAT 93
--- NOTE | 2017-03-02 17:16 | Orthopedic Progress Note ---
Orthopedic Progress Note Date of Service Mar 02, 2017. Subjective Reports: feeling well, complaints (still having right knee pain, but states improving), nausea / vomiting (mild nausea with breakfast and lunch, no vomiting , able to eat some lunch), pain controlled w PO medications, Denies: chest pain , SOB, light headedness, calf pain Additional Notes: able to more comfortably ambulate the halls today. States that his knee is stiff with getting up, but he's able to work it out and walk on it more comfortably. Using walker to assist with ambulation. Objective calves soft nontender, N/V intact, capillary refill less than 2 sec., A&O x3, toes mobile Dressings to right knee with mild bloody serous drainage. iodoform packing present, removed. No purulence or active drainage from I&D site. Tolerates ROM to right knee with pain at extreme flexion at approximately 120 degrees. Able to independently SLR today. Distal pulses intact, erythema of thigh and warmth of thigh still present. Calf and thigh supple. Erythema around knee improved. No effusion right knee. Date Time Temp Pulse Resp B/P (MAP) Pulse Ox O2 Delivery O2 Flow Rate FiO2 03/02/17 15:40 Room Air 03/02/17 09:45 36.4 03/02/17 08:05 Room Air 03/02/17 07:09 36.6 55 17 113/69 (84) 97 Room Air 03/02/17 01:37 Room Air 03/01/17 23:49 36.6 67 14 126/75 (92) 91 Room Air 03/01/17 20:07 36.8 67 16 125/77 (93) 93 Room Air Laboratory Results 24 Hours: Test 03/02/17 05:52 Hematocrit 37.6 % Hemoglobin 12.2 g/dL Assessment & Plan Assessment: septic right prepatellar bursitis. Cultures resulted with MRSA. s/p I&D at bedside 02/27/17 Plan: Continue elevation right leg. Wound re-packed today. Continue IV Vanco - trough improving 18.7 today Zofran ordered for nausea Appreciate ID assistance Continue OOB as tolerated. Allowed WBAT RLE MARY stocking right lower extremity to help with swelling. Regular diet. Seen and evaluated by Dr. Echols today. Will recheck in AM. Will make NPO p MN in case surgical intervention recommended tomorrow.
[2017-03-02] MEDS: MoRPHine SULFATE 4 MG/ML 1 ML CARP\\VIAL IV PRN (17:20)
[2017-03-02] MEDS: LISINOPRIL 20 MG TAB PO SCH (20:33)
[2017-03-02] MEDS: PRAVASTATIN SOD 40 MG TAB PO SCH (20:34)
[2017-03-02] MEDS: NICOTINE 21 MG/24 HR TDSY EXT SCH (20:35)
[2017-03-02 23:19] VITALS: BP 127/66; PULSE 58; TEMP 36.8; O2SAT 92
[2017-03-03] MEDS: HYDROCODONE/ACETAMI 10/325 TAB PO PRN ×2 (02:01→23:33)
[2017-03-03] MEDS: VANCOMYCIN INJ 1,650 MG in SODIUM CHLORIDE 0.9% 500ML 500 ML IV SCH ×3 (04:36→20:43)
[2017-03-03 06:45] LABS: CREATININE 0.74 mg/dl (0.60-1.40)
[2017-03-03 06:52] VITALS: BP 107/64; PULSE 58; TEMP 36.5; O2SAT 92
[2017-03-03] MEDS: DOCUSATE SODIUM 100 MG CAP PO SCH ×2 (08:55→20:44)
[2017-03-03] MEDS: MoRPHine SULFATE 4 MG/ML 1 ML CARP\\VIAL IV PRN (08:55)
--- NOTE | 2017-03-03 10:50 | Orthopedic Progress Note ---
Orthopedic Progress Note Date of Service Mar 03, 2017. 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 Also has 1+ pitting edema of Right lower leg. Packing/dressing changed this AM by nursing staff. Pt states that drainage was clear/bloody in appearance. Periph pulses easily palpable. Date Time Temp Pulse Resp B/P (MAP) Pulse Ox O2 Delivery O2 Flow Rate FiO2 03/03/17 08:00 Room Air 03/03/17 06:52 36.5 58 17 107/64 (78) 92 Room Air 03/02/17 23:50 Room Air 03/02/17 23:19 36.8 58 19 127/66 (86) 92 Room Air 03/02/17 16:50 36.8 71 18 136/71 (92) 93 Room Air 03/02/17 15:40 Room Air Assessment & Plan Assessment: septic right prepatellar bursitis. Cultures resulted with MRSA. s/p I&D at bedside 02/27/17 Plan: Continue elevation right leg. Wound re-packed today. Continue IV Vanco - trough improving 18.7 today Zofran ordered for nausea Appreciate ID assistance Continue OOB as tolerated. Allowed WBAT RLE MARY stocking right lower extremity to help with swelling. Regular diet. Drop in CRP to 4.15
--- NOTE | 2017-03-03 14:58 | Progress Note ---
Subjective Date of Service: Mar 03, 2017. Subjective Pt evaluation today including: conversation w/ patient, physical exam, chart review, lab review pt seen in follow up, tolerating abx. no f/c. pain improved today. No plans for OR at this time. remains on vanco. blood cultures negative. afebrile. all remaining ros reviewed and are negative. Problem List Medical Problems: (1) Cellulitis of right knee Status: Acute (2) Right leg pain Status: Acute (3) Septic bursitis Status: Acute Objective Vital Signs Date Time Temp Pulse Resp B/P (MAP) Pulse Ox O2 Delivery O2 Flow Rate FiO2 03/03/17 08:00 Room Air 03/03/17 06:52 36.5 58 17 107/64 (78) 92 Room Air 03/02/17 23:50 Room Air 03/02/17 23:19 36.8 58 19 127/66 (86) 92 Room Air 03/02/17 16:50 36.8 71 18 136/71 (92) 93 Room Air 03/02/17 15:40 Room Air Physical Exam General Appearance: no apparent distress Eyes: normal inspection, EOMI Neck: supple Respiratory/Chest: lungs clear, normal breath sounds, no respiratory distress Cardiovascular: regular rate, rhythm, no edema Abdomen: soft Extremities: non-tender, no pedal edema Neurologic/Psychiatric: alert, oriented x 3 Skin: normal color Laboratory Results Item Value Date Time Gram Stain - Final Resulted 02/27/17 1900 Abscess Knee Right Gram Stain - Final Resulted 02/27/17 1900 Abscess Knee Right Blood Culture - Preliminary Resulted 02/27/17 1725 Blood NO GROWTH TO DATE. Blood Culture - Preliminary Resulted 02/27/17 1718 Blood NO GROWTH TO DATE. Gram Stain - Final Resulted 02/27/17 1900 Abscess Knee Right Gram Stain - Final Resulted 02/27/17 1900 Abscess Knee Right Last 24 Hours Test 03/03/17 05:27 Creatinine 0.74 mg/dl Est Creatinine Clear Calc Drug Dose 129.7 ml/min Estimated GFR () 122.1 Estimated GFR (Non- 105.3 C-Reactive Protein 4.13 mg/dl Assessment and Plan (1) Septic bursitis Assessment & Plan: will continue IV abx for now, will likely need picc line and long-term abx. will follow. (2) Cellulitis of right knee
[2017-03-03 15:00] VITALS: BP 116/72; PULSE 53; TEMP 36.7; O2SAT 93
[2017-03-03] MEDS: PRAVASTATIN SOD 40 MG TAB PO SCH (20:44)
[2017-03-03] MEDS: LISINOPRIL 20 MG TAB PO SCH (20:45)
[2017-03-03] MEDS: NICOTINE 21 MG/24 HR TDSY EXT SCH (20:52)
[2017-03-03 22:52] VITALS: BP 150/84; PULSE 59; TEMP 36.8; O2SAT 95
[2017-03-04] MEDS ORDERED: VANCOMYCIN TROUGH ONE (04:00)
[2017-03-04 04:39] LABS: C-REACTIVE PROTEIN 2.7 mg/dl (0-0.29); CREATININE 0.76 mg/dl (0.60-1.40)
[2017-03-04] MEDS: VANCOMYCIN INJ 1,650 MG in SODIUM CHLORIDE 0.9% 500ML 500 ML IV SCH (05:10)
[2017-03-04 07:22] VITALS: BP 116/71; PULSE 47; TEMP 36.6; O2SAT 96
--- NOTE | 2017-03-04 08:08 | Orthopedic Progress Note ---
Orthopedic Progress Note Date of Service Mar 04, 2017. Subjective Reports: feeling well Additional Notes: Mr. Armstrong reports he is feeling better this morning. His CRP continues to trend downward. No fevers or chills. He was seen by infectious diseases yesterday is recommending a PICC line and long-term IV antibiotics. Per his nurses Madeline is infiltrating this morning. Objective Date Time Temp Pulse Resp B/P (MAP) Pulse Ox O2 Delivery O2 Flow Rate FiO2 03/04/17 07:22 36.6 47 18 116/71 (86) 96 Room Air 03/03/17 23:40 Room Air 03/03/17 22:52 36.8 59 18 150/84 (106) 95 Room Air 03/03/17 16:15 Room Air 03/03/17 15:00 36.7 53 18 116/72 (87) 93 Room Air Additional Notes: Examination of his knee this morning reveals the area of redness to continue to decrease in size. Now about 2 inches in diameter. He still some induration here. There is no significant cellulitis any longer. His knee range of motion is from 0-100. Assessment & Plan Assessment: Improving septic right prepatellar bursitis. Cultures resulted with MRSA. s/p I&D at bedside 02/27/17. Plan: An order was placed for a PICC line today. He'll continue on IV vancomycin per infectious disease. Plan on sending him home tomorrow with home nursing to do dressing changes and pack his wound. Nursing to shower the patient and repack his wound here in the hospital daily. Continue OOB as tolerated. Allowed WBAT RLE MARY stocking right lower extremity to help with swelling. Regular diet. Discharge Planning Discharge Planning: home with home health
[2017-03-04] MEDS: DOCUSATE SODIUM 100 MG CAP PO SCH ×2 (08:24→20:48)
[2017-03-04] MEDS: HYDROCODONE/ACETAMI 10/325 TAB PO PRN ×3 (08:24→20:58)
--- NOTE | 2017-03-04 11:15 | Pharmacy Progress Note ---
Pharmacy Antibiotic Prog Note Date of Service Mar 04, 2017. Subjective The patient is currently receiving 1650 mg IV every 8 hours. The patient is currently on day # 6 of 10 IV therapy. Objective Height (Feet): 5 Height (Inches): 6.00 Weight (Kilograms): 103.000 Levels: Item Value Date Time Vancomycin Level Trough 18.7 mcg/ml 03/02/17 1151 Lab Results (24hrs): Test 03/04/17 04:05 Creatinine 0.76 mg/dl (0.60-1.40) Est Creatinine Clear Calc Drug Dose 126.3 ml/min Estimated GFR () 120.7 Estimated GFR (Non- 104.2 C-Reactive Protein 2.70 mg/dl (0-0.29) Vancomycin Level Trough 20.9 mcg/ml (SEE COMMENT) Micro Results: SEE EMR Assessment & Plan This/These drug level(s) are: Supratherapeutic. However, per Dr. Hay, he wants to target a trough closer to 20. Will likely continue to accumulate, so will slightly reduce dose to 1500mg q8 and Change to 1500 mg IV every 8 hours starting at 1400. Trough level has been ordered for: @ 1330. Pharmacy will continue to follow and will adjust dose/frequency as necessary. Thank you
[2017-03-04] MEDS ORDERED: VANCOMYCIN INJ 1,250 MG in SODIUM CHLORIDE 0.9% 250ML 250 ML IV SCH (14:00)
[2017-03-04] MEDS ORDERED: VANCOMYCIN INJ 1,500 MG in SODIUM CHLORIDE 0.9% 500ML 500 ML IV SCH (14:00)
--- NOTE | 2017-03-04 14:23 | Progress Note ---
Subjective Date of Service: Mar 04, 2017. Subjective Pt evaluation today including: conversation w/ patient, physical exam, chart review, lab review pt feeling much better today, ambulating with less pain, no f/c. tolerating abx. denies drainage from knee. Spoke with ortho, likely d/c in am. s/p picc line. All remaining ros reviewed and are negative spoke with case management this afternoon. pt does have coverage for home dapto and currently in on vanco tid. Problem List Medical Problems: (1) Cellulitis of right knee Status: Acute (2) Right leg pain Status: Acute (3) Septic bursitis Status: Acute Objective Vital Signs Date Time Temp Pulse Resp B/P (MAP) Pulse Ox O2 Delivery O2 Flow Rate FiO2 03/04/17 08:00 Room Air 03/04/17 07:22 36.6 47 18 116/71 (86) 96 Room Air 03/03/17 23:40 Room Air 03/03/17 22:52 36.8 59 18 150/84 (106) 95 Room Air 03/03/17 16:15 Room Air 03/03/17 15:00 36.7 53 18 116/72 (87) 93 Room Air Physical Exam General Appearance: WD/WN, no apparent distress Eyes: normal inspection, EOMI Neck: supple Respiratory/Chest: lungs clear, normal breath sounds, no respiratory distress Cardiovascular: regular rate, rhythm, no edema Abdomen: non tender, soft Extremities: non-tender, no pedal edema Neurologic/Psychiatric: alert, oriented x 3 Skin: normal color Comments: right knee dressing c/d/i, min erythema thigh, improved, non tender, no warmth. improving. Laboratory Results Item Value Date Time Gram Stain - Final Complete 02/27/171899 Abscess Knee Right Gram Stain - Final Complete 02/27/17 190 Abscess Knee Right Blood Culture - Preliminary Resulted 02/27/17 1725 Blood NO GROWTH TO DATE. Blood Culture - Preliminary Resulted 02/27/17 1718 Blood NO GROWTH TO DATE. Last 24 Hours Test 03/04/17 04:05 Creatinine 0.76 mg/dl Est Creatinine Clear Calc Drug Dose 126.3 ml/min Estimated GFR () 120.7 Estimated GFR (Non- 104.2 C-Reactive Protein 2.70 mg/dl Vancomycin Level Trough 20.9 mcg/ml Assessment and Plan (1) Septic bursitis Assessment & Plan: will change to dapto for ease of use. pt is concerned about return to work Ideally would like to continue IV abx for min21 days. will follow in office in 2 weeks and assess response to therapy. will need weekly cbc , cmp, esr, cpk while on therapy. will check baseline cpk today. (2) Cellulitis of right knee
[2017-03-04] MEDS: DAPTOmycin IV 600 MG in SODIUM CHLORIDE 0.9% 50ML 50 ML IV SCH (15:14)
[2017-03-04] MEDS ORDERED: NURSING VERBAL MED ORDER ONE (15:45)
[2017-03-04 15:48] VITALS: BP 133/69; PULSE 67; TEMP 36.6; O2SAT 93
[2017-03-04] MEDS: NICOTINE 21 MG/24 HR TDSY EXT SCH (20:48)
[2017-03-04] MEDS: LISINOPRIL 20 MG TAB PO SCH (20:49)
[2017-03-04] MEDS: PRAVASTATIN SOD 40 MG TAB PO SCH (20:50)
[2017-03-05] VITALS: BP 147/84; PULSE 64
[2017-03-05 00:02] VITALS: BP 171/90; PULSE 61; TEMP 36.8; O2SAT 94
[2017-03-05 00:38] VITALS: BP 147/84; PULSE 64
[2017-03-05 07:12] VITALS: BP 133/85; PULSE 46; TEMP 36.7; O2SAT 96
--- NOTE | 2017-03-05 08:47 | Discharge Instructions ---
Discharge Instructions Date of Service Mar 05, 2017. Admission Reason for Admission: Right Knee Septic Prepatellar Bursitis Discharge Discharge Diagnosis / Problem: same as above Discharge Goals Goal(s): Decrease discomfort, Improve function, Increase independence Activity Recommendations Activity Limitations: per Instructions/Follow-up section Lifting Limitations: none Exercise/Sports Limitations: none May Resume Sexual Activity: after follow-up appointment Shower/Bathe: tomorrow Driving or Machine Use: After follow up Weightbearing Status: Right weightbearing (as tolerated) . Instructions / Follow-Up Instructions / Follow-Up Follow up with Amadeo Armstrong next Thursday (03/11/17) or Thursday (03/12/17) at [facility] Call office to set up appt at Current Hospital Diet Patient's current hospital diet: Regular Diet Discharge Diet Recommended Diet: Regular Diet Procedures Procedures Performed: I&D R knee prepatellar bursa Pending Studies Studies pending at discharge: no Work Instructions Additional Instructions: Off work for 1 week, until 03/07/2017 Medical Emergencies . Who to Call and When: Medical Emergencies: If at any time you feel your situation is an emergency, please call 911 immediately. . Non-Emergent Contact Non-Emergency issues call your: Primary Care Provider Call Non-Emergent contact if: temperature is above 101.5, your pain is not controlled, wound has increased drainage, wound has increased redness, wound has increased pain . "Provider Documentation" section prepared by Rizwan Armstrong. . VTE Core Measure Inpt VTE Proph given/why not?: Other Anticoagulation (foot pumps), T.E.D. Stockings [place] Drug Monitoring Program Search Results: no issues identified
[2017-03-05 08:50] LABS: C-REACTIVE PROTEIN 1.16 mg/dl (0-0.29); CREATININE 0.73 mg/dl (0.60-1.40)
[2017-03-05] MEDS: DOCUSATE SODIUM 100 MG CAP PO SCH (09:00)
[2017-03-05] MEDS: HYDROCODONE/ACETAMI 10/325 TAB PO PRN (09:01)
[2017-03-05 09:28] VITALS: BP 133/85; PULSE 46; TEMP 36.7; O2SAT 96
--- NOTE | 2017-03-05 10:10 | Orthopedic Progress Note ---
Orthopedic Progress Note Date of Service Mar 05, 2017. Subjective Reports: feeling well, pain controlled w PO medications, Denies: complaints, chest pain, SOB, nausea / vomiting, light headedness, calf pain, using SPRAY CREW Objective calves soft nontender, N/V intact, capillary refill less than 2 sec., dressing C /D/I, A&O x3, toes mobile, CMS intact Pt only had a small amt of packing in the I&D site when changed this AM Date Time Temp Pulse Resp B/P (MAP) Pulse Ox O2 Delivery O2 Flow Rate FiO2 03/05/17 09:28 36.7 46 18 96 Room Air 03/05/17 08:00 Room Air 03/05/17 07:12 36.7 46 18 133/85 (101) 96 Room Air 03/05/17 00:38 64 147/84 (105) 03/05/17 00:25 Room Air 03/05/17 00:02 36.8 61 18 171/90 (117) 94 Room Air 03/04/17 15:48 36.6 67 16 133/69 (90) 93 Room Air 03/04/17 15:15 Room Air Assessment & Plan Assessment: Improving septic right prepatellar bursitis. Cultures resulted with MRSA. s/p I&D at bedside 02/27/17. Plan: An order was placed for a PICC line yesterday. He will be discharged on IV daptomycin per infectious disease. Discharge placed for after lunch today Rx written for home health nursing to change patients packing and dressing daily for 2 wk (be sure to apply moderate amount of packing into wound) Continue OOB as tolerated. Allowed WBAT RLE MARY stocking right lower extremity to help with swelling. Regular diet. Will follow up in office ([facility]) with Amadeo Armstrong PA-C Thursday or Thursday of next week. Call to schedule appointment (1) Septic bursitis Acute (2) Cellulitis of right knee Acute Discharge Planning Discharge Planning: home with home health DVT Prophylaxis: Fany
--- NOTE | 2017-03-05 10:14 | Discharge Summary ---
Orthopedic Discharge Summary Admission Date/Reason Feb 27, 2017 at 18:11 Right Knee septic Prepatellar Bursitis. Discharge Date/Disposition Mar 05, 2017 Home with services (Home health nursing to change dressing and packing daily for 2 wks) Diagnosis Principal Diagnosis: Right knee septic prepatellar bursitis Procedure(s) Performed Bedside I&D performed by Dr. Echols on 02/27/17 Consultations Patient had infectious Disease consultation. Was placed on IV Vancomycin while inpatient and will be discharged on IV Daptomycin to be administered through his picc line. Medication Reconciliation Cipro 500 mg 1 tab PO BID x 10 days Argos 10/325mg 1-2 tabs PO q 4 hrs prn pain Lamictal 50 mg PO BID Lisinopril 20 mg PO qHS Metronidazole 500 mg PO TID x 10 days Pravastatin Sodium 40 mg PO qHS Admission Physical Exam As per Admitting History & Physical. Hospital Course 51-year-old male who thought he got a splinter in his knee on Thursday of last week. He dug in in the wound with his knife at home and was unable get a splint throughout. The next day he noticed some area lines like a pimple and was able squeezed out some pus. Since that time his knee is got progressively more painful and he's developed redness in the last day. He went to urgent care earlier today (02/27/17) close to his home town who sent him to [facility] emergency room. Patient states he's been feverish. His temperature measured at the outside facility was 101F. He's been limping on his leg. She's never had an infection like this before. He is able to move his knee without too much pain. 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 No numbness or tingling down the leg. The pain is located in the anterior aspect of the knee. Sharp in character. Plan after informed consent was obtained we prepped the leg with Betadine. A 2 cm horizontal incision was made over the area of maximum induration. The prepatellar bursa was explored with a hemostat to break up any loculations. We irrigated the prepatellar bursa with 60 mL syringe and 1 L of normal saline. We then packed the wound with approximately 12 inches of quarter inch wound packing strips. The wound was covered with 4 x 4's ABDs Kerlix and an Delbert wrap. The patient was admitted to hospital. His skin to be on IV vancomycin. Pharmacy will dose this. We'll get daily labs to monitor his response he antibiotics. We did take cultures from his wound which will follow. He also had blood cultures in the ER. Pain will be Argos for pain control with IV morphine when necessary. Patient had ID consult and was placed on IV Vancomycin. After a 7 stay his CRP levels dropped considerably. PICC line placement was recommended by ID yesterday and was placed yesterday. Patient will be discharge this afternoon on IV Daptomycin through his PICC line as instructed per ID. He will f/u with Amadeo Armstrong PA-C on 03/09/17 or 03/10/17. He will f/u with ID in two weeks. Discharge Instructions Please refer to the electronic Patient Visit Report (Discharge Instructions) for additional information. Additional Copies To Álvaro Echols MD; Jennifer. Corona D.Maribeth.
[2017-03-05] MEDS: DAPTOmycin IV 600 MG in SODIUM CHLORIDE 0.9% 50ML 50 ML IV SCH (11:47)
[2017-03-05] MEDS ORDERED: VANCOMYCIN TROUGH ONE (13:30)
== END 2017-03-05 14:46 | disposition home health service (06) | DRG 501 ==
LOC: C.EDB 16:11 → C.MSN 18:11 → ENRESERV 18:34
PROVIDERS: ADMIT Orthopaedic Surgery; ATTEND Orthopaedic Surgery
PROC: 0M9N0ZZ Drainage of Right Knee Bursa and Ligament, Open Approach (ICD-10-PCS; principal; 2017-02-27)
PROC: 02HV33Z Insertion of Infusion Device into Superior Vena Cava, Percutaneous Approach (ICD-10-PCS; 2017-02-27)
DX: M71.161 Other infective bursitis, right knee (principal); K57.92 Diverticulitis of intestine, part unspecified, without perforation or abscess without bleeding; L03.115 Cellulitis of right lower limb; Z85.6 Personal history of leukemia; I10 Essential (primary) hypertension; B95.62 Methicillin resistant Staphylococcus aureus infection as the cause of diseases classified elsewhere

== ENCOUNTER 2017-03-07 17:55 | Emergency (ER) | payer BC ==
[~2017-03-07] VITALS: Ht 167.6 cm; Wt 99.4 kg
[~2017-03-07 17:55] MED LIST changes: +PRAV40TA2 PO
[2017-03-07 18:06] VITALS: TEMP 36.8; Ht 167.6 cm; Wt 99.4 kg
[2017-03-07] MEDS ORDERED: DAPTOmycin IV 600 MG in SODIUM CHLORIDE 0.9% 50ML 50 ML IV STA (18:25)
--- NOTE | 2017-03-07 18:36 | EMERGENCY ROOM VISIT NOTE ---
History Report prepared by Britt: Clinton Yost Under the Supervision of: Dr. Maximus Villegas M.D. First contact with patient: 18:13 Chief Complaint: INFECTION Stated Complaint: ARM PAIN Nursing Triage Summary: Pt reports last Thursday he was admitted for MRSA infection of right knee. Has PICC line in right arm and was to get antibiotics from home nurse, but noticed swelling, redness, warmth, pain around PICC line site. History of Present Illness The patient is a 51 year old male who presents to the Emergency Room with complaints of worsening infection in his right arm for the past few days. The patient states that he was recently admitted for a MRSA infection in his right knee, and he had a PICC line placed in his arm. He was discharged two days ago on daptomycin through the PICC line. He states that he is now having redness and pain in the right arm near the PICC line. He notes that he has a history of blood clots in his right arm after a brain surgery. He states that his right knee is feeling better, and he has not been having leg swelling. Pt denies LOC, headache, lower arm swelling, fevers, chills, diaphoresis, visual changes, neck pain, chest pain, breathing difficulties, nausea, vomiting, abdominal pain, back pain, melena, hematochezia, urinary symptoms, numbness, weakness, lymphadenopathy, rash, or other complaints. Source of History: patient Onset: a few days ago Position: arm (right) Quality: other (infection) Timing: worsening Note: Associated symptoms: Redness and pain Review of Systems See HPI for pertinent positives and negatives. A total of ten systems were reviewed and were otherwise negative. Past Medical & Surgical Medical Problems: (1) ANEURYSM NOS (2) HX OF LEUKEMIA NEC (3) Hypertension (4) HYPERTENSION NOS (5) Knee bursitis (6) SYNCOPE AND COLLAPSE (7) Urinary problem Family History Diabetes mellitus FH: heart disease FHx: cancer Hypertension Kidney stones Social History Smoking Status: Never Smoker Alcohol Use: none Drug Use: none Marital Status: Occupation Status: employed Current/Historical Medications Scheduled Hydrocodone/Acetaminophen ([place] 10/325 Tab), 1-2 TAB PO Q4HR PRN Lamotrigine (Lamictal), 200 MG PO BID Lamotrigine (Lamictal), 50 MG PO BID Lisinopril (Zestril), 20 MG PO HS Pravastatin Sodium (Pravastatin Sodium), 40 MG PO HS Allergies Coded Allergies: No Known Allergies (Verified , 02/27/17) Physical Exam Vital Signs Date Time Temp Pulse Resp B/P (MAP) Pulse Ox O2 Delivery O2 Flow Rate FiO2 03/07/17 22:31 62 18 136/81 93 Room Air 03/07/17 21:03 54 18 128/80 96 Room Air 03/07/17 18:06 36.8 63 17 159/96 97 Room Air Physical Exam GENERAL: Awake, alert, well-appearing, in no distress HENT: Normocephalic, atraumatic. Oropharynx unremarkable. EYES: Normal conjunctiva. Sclera non-icteric. NECK: Supple. No nuchal rigidity. FROM. No JVD. RESPIRATORY: Clear to auscultation. CARDIAC: Regular rate, normal rhythm. Extremities warm and well perfused. Pulses equal. ABDOMEN: Soft, non-distended. No tenderness to palpation. No rebound or guarding. No masses. RECTAL: Deferred. MUSCULOSKELETAL: Erythema, swelling, warmth, and tenderness from the mid bicep to the antecubital fossa. PICC line in the medial bicep not associated with the area of redness and swelling. Chest examination reveals no tenderness. The back is symmetrical on inspection without obvious abnormality. There is no CVA tenderness to palpation. No joint edema. LOWER EXTREMITIES: Calves are equal size bilaterally and non-tender. No edema. No discoloration. NEURO: Normal sensorium. No sensory or motor deficits noted. SKIN: No rash or jaundice noted. Medical Decision & Procedures ER Provider Diagnostic Interpretation: Radiology results as stated below per my review and radiologist interpretation: R VENOUS DOPPLER UPR EXT UNIL HISTORY: 51 years-old Male eval for right arm DVT acute upper extremity swelling COMPARISON: None available TECHNIQUE: Multiple real-time sonographic images of the right upper extremity deep venous system was obtained assessing grayscale appearance, color and spectral flow FINDINGS: PICC is noted within the mid basilic to subclavian vein. There is normal flow, augmentation and compressibility of the deep veins without evidence of deep venous thrombosis. Occlusive thrombus is noted within the right cephalic vein just distal to the PICC bandage. Flow is seen within the cephalic vein of the distal forearm. IMPRESSION: 1. No sonographic evidence of right upper extremity deep venous thrombosis. 2. Occlusive superficial venous thrombosis of the right cephalic vein . 3. Right upper extremity PICC The above report was generated using voice recognition software. It may contain grammatical, syntax or spelling errors. Electronically signed by: Len Howard M.D. 03/07/2017 8:50 PM Dictated Date/Time: 03/07/2017 8:44 PM Laboratory Results 03/07/17 19:10 Red Blood Count 4.50, Mean Corpuscular Volume 89.8, Mean Corpuscular Hemoglobin 31.6, Mean Corpuscular Hemoglobin Concent 35.1, Mean Platelet Volume 9.1, Neutrophils (%) (Auto) 58.3, Lymphocytes (%) (Auto) 31.5, Monocytes (%) (Auto) 8.2, Eosinophils (%) (Auto) 1.4, Basophils (%) (Auto) 0.3, Neutrophils # (Auto) 5.16, Lymphocytes # (Auto) 2.79, Monocytes # (Auto) 0.73, Eosinophils # (Auto) 0.12, Basophils # (Auto) 0.03 03/07/17 19:10 Test 03/07/17 19:10 White Blood Count 8.86 K/uL (4.8-10.8) Red Blood Count 4.50 M/uL (4.7-6.1) Hemoglobin 14.2 g/dL (14.0-18.0) Hematocrit 40.4 % (42-52) Mean Corpuscular Volume 89.8 fL (80-100) Mean Corpuscular Hemoglobin 31.6 pg (25-34) Mean Corpuscular Hemoglobin Concent 35.1 g/dl (32-36) Platelet Count 323 K/uL (130-400) Mean Platelet Volume 9.1 fL (7.4-10.4) Neutrophils (%) (Auto) 58.3 % Lymphocytes (%) (Auto) 31.5 % Monocytes (%) (Auto) 8.2 % Eosinophils (%) (Auto) 1.4 % Basophils (%) (Auto) 0.3 % Neutrophils # (Auto) 5.16 K/uL (1.4-6.5) Lymphocytes # (Auto) 2.79 K/uL (1.2-3.4) Monocytes # (Auto) 0.73 K/uL (0.11-0.59) Eosinophils # (Auto) 0.12 K/uL (0-0.5) Basophils # (Auto) 0.03 K/uL (0-0.2) RDW Standard Deviation 41.6 fL (36.4-46.3) RDW Coefficient of Variation 12.7 % (11.5-14.5) Immature Granulocyte % (Auto) 0.3 % Immature Granulocyte # (Auto) 0.03 K/uL (0.00-0.02) Prothrombin Time 10.4 SECONDS (9.0-12.0) Prothromb Time International Ratio 1.0 (0.9-1.1) Activated Partial Thromboplast Time 26.9 SECONDS (21.0-31.0) Partial Thromboplastin Ratio 1.0 Anion Gap 5.0 mmol/L (3-11) Est Creatinine Clear Calc Drug Dose 129.1 ml/min Estimated GFR () 122.7 Estimated GFR (Non- 105.9 BUN/Creatinine Ratio 19.0 (10-20) Calcium Level 9.3 mg/dl (8.5-10.1) Total Bilirubin 0.3 mg/dl (0.2-1) Aspartate Amino Transf (AST/SGOT) U/L (15-37) Alanine Aminotransferase (ALT/SGPT) 43 U/L (12-78) Alkaline Phosphatase 62 U/L (45-117) Total Protein 7.9 gm/dl (6.4-8.2) Albumin 3.8 gm/dl (3.4-5.0) Globulin 4.1 gm/dl (2.5-4.0) Albumin/Globulin Ratio 0.9 (0.9-2) Laboratory results reviewed by me Medications Administered Medications (Trade) Dose Ordered Sig/Nina Route Start Time Stop Time Status Last Admin Dose Admin Daptomycin 600 mg/ Sodium Chloride 62 ml @ 100 mls/hr NOW STAT IV 03/07/17 18:25 03/07/17 19:02 DC 03/07/17 19:20 100 MLS/HR Aspirin (Aspirin Chew) 324 mg NOW STAT PO 03/07/17 22:26 03/07/17 22:27 DC 03/07/17 22:35 324 MG ED Course 181: The patient was evaluated in room B11. A complete history and physical exam was performed. 1825: Daptomycin 600mg/ Sodium Chloride 62ml @ 100mls/hr IV 2120: I reevaluated the patient, and he was doing well 8: I discussed the patient's case with Dr. Ya, hematology, and he recommends conservatory treatment because it is not in the catheter. 2224: I reevaluated the patient. Discussed results and discharge instructions: He verbalized understanding and agreement. The patient is ready for discharge. 2226: Aspirin 324mg PO Medical Decision Triage Nursing notes reviewed. The patient's presentation and history were concerning for arm swelling. Etiologies such as DVT, joint effusion, infection, trauma, muscular, lymphedema , idiopathic, CHF, as well as others were entertained. The patient was evaluated. He was concerned about swelling, tenderness and redness in the right bicep area. He has a PICC line there. The patient had had multiple IVs in that arm as well during his 1 week hospital stay. He has a history of DVT in that upper extremity. An IV was established and the patient had blood work obtained. His daily dose of daptomycin, 600 mg was administered. Ultrasound imaging was performed of the right upper extremity. The patient has a superficial phlebitis of the cephalic vein. The patient has an open basilic system and there is no evidence of catheter associated thrombosis. He appears the patient had an IV in the area of the cephalic thrombophlebitis. I did consult with Dr. Ya from hematology. He recommended conservative management with NSAIDs and compresses as the patient is very low risk for propagation and complication. He should be followed closely in the office. I discussed this with the patient. He felt very comfortable with that plan. If he worsens in any way he is instructed to come back. I did instruct him to watch for catheter related issues.I gave my usual and customary discussion regarding this issue. By the evaluation outlined above other emergent etiologies such as those listed in the differential, as well as others, were deemed relatively unlikely. The patient was educated about the findings as listed above. All questions were answered and the patient was pleased with the treatment. Return instructions were outlined and the patient was discharged in stable condition. The patient was referred to his PCP for follow-up for a recheck of the current condition. Medication Reconcilliation Current Medication List: was personally reviewed by me Blood Pressure Screening Patient's blood pressure: Normal blood pressure Consults Time Called: 2118 Consulting Physician: Dr. Ya, Hematology Returned Call: [phone] I discussed the patient's case with Dr. Ya, hematology, and he recommends conservatory treatment because it is not in the catheter. Impression Primary Impression: Superficial venous thrombosis of arm Scribe Attestation The scribe's documentation has been prepared under my direction and personally reviewed by me in its entirety. I confirm that the note above accurately reflects all work, treatment, procedures, and medical decision making performed by me. Departure Information Dispostion Home / Self-Care Referrals Berhane Humphrey III, CRNP (PCP) Forms HOME CARE DOCUMENTATION FORM, IMPORTANT VISIT INFORMATION, WORK / SCHOOL INSTRUCTIONS Patient Instructions My [facility] Additional Instructions Ice compresses for 20 minutes at a time four times daily for 2-3 days. Take one aspirin 3 times a day as needed for swelling and discomfort in the arm. Take with food. Continue infusions through the PICC line as directed. Follow-up with your primary clinic on Thursday. Close follow-up will be necessary regarding the arm. If there is any additional problems such as swelling, fever, difficulty breathing, chest pain, or any problems with the PICC line return to the emergency Department immediately.
[2017-03-07 19:29] LABS: BASO % 0.3 %; BASO ABS # 0.03 K/uL (0-0.2); COMPLETE YES; EOS % 1.4 %; HEMATOCRIT 40.4 % (42-52); IG% 0.3 %; LYMPH % 31.5 %; LYMPH ABS # 2.79 K/uL (1.2-3.4); MEAN CELL VOLUME 89.8 fL (80-100); MEAN CORPUSCULAR HEMOGLOBIN 31.6 pg (25-34); MEAN CORPUSCULAR HGB CONC 35.1 g/dl (32-36); MEAN PLATELET VOLUME 9.1 fL (7.4-10.4); MONO % 8.2 %; NEUT % 58.3 %; PLATELET COUNT 323 K/uL (130-400); WHITE BLOOD COUNT 8.86 K/uL (4.8-10.8)
[2017-03-07 19:39] LABS: PROTHROMBIN TIME (PATIENT) 10.4 SECONDS (9.0-12.0)
[2017-03-07 19:54] LABS: ALB/GLOB RATIO 0.9 (0.9-2); ALKALINE PHOSPHATASE 62 U/L (45-117); ALT/SGPT 43 U/L (12-78); BLOOD UREA NITROGEN 14 mg/dl (7-18); CALCIUM 9.3 mg/dl (8.5-10.1); CARBON DIOXIDE 27 mmol/L (21-32); CHLORIDE 108 mmol/L (98-107); CREATININE 0.73 mg/dl (0.60-1.40); GLUCOSE 84 mg/dl (70-99); SODIUM 140 mmol/L (136-145)
--- NOTE | 2017-03-07 20:51 | DIAGNOSTIC IMAGING REPORT ---
R VENOUS DOPPLER UPR EXT UNIL HISTORY: 51 years-old Male eval for right arm DVT acute upper extremity swelling COMPARISON: None available TECHNIQUE: Multiple real-time sonographic images of the right upper extremity deep venous system was obtained assessing grayscale appearance, color and spectral flow FINDINGS: PICC is noted within the mid basilic to subclavian vein. There is normal flow, augmentation and compressibility of the deep veins without evidence of deep venous thrombosis. Occlusive thrombus is noted within the right cephalic vein just distal to the PICC bandage. Flow is seen within the cephalic vein of the distal forearm. IMPRESSION: 1. No sonographic evidence of right upper extremity deep venous thrombosis. 2. Occlusive superficial venous thrombosis of the right cephalic vein . 3. Right upper extremity PICC The above report was generated using voice recognition software. It may contain grammatical, syntax or spelling errors. Electronically signed by: Len Howard M.D. 03/07/2017 8:50 PM Dictated Date/Time: 03/07/2017 8:44 PM
[2017-03-07] MEDS ORDERED: ASPIRIN 81 MG CHEW PO STA (22:26)
[2017-03-07 22:31] VITALS: BP 136/81; PULSE 62; O2SAT 93
== END 2017-03-07 22:56 | disposition home or self-care (01) ==
LOC: C.EDB 17:56
DX: I82.611 Acute embolism and thrombosis of superficial veins of right upper extremity (principal); I80.8 Phlebitis and thrombophlebitis of other sites; L08.9 Local infection of the skin and subcutaneous tissue, unspecified; B95.62 Methicillin resistant Staphylococcus aureus infection as the cause of diseases classified elsewhere; I10 Essential (primary) hypertension; Z95.9 Presence of cardiac and vascular implant and graft, unspecified; Z86.718 Personal history of other venous thrombosis and embolism; Z85.6 Personal history of leukemia; Z83.3 Family history of diabetes mellitus; Z82.49 Family history of ischemic heart disease and other diseases of the circulatory system; Z84.1 Family history of disorders of kidney and ureter

== ENCOUNTER → 2017-04-17 | Day surgery (SDC) | payer BC ==
[2017-04-15 12:09] VITALS: BMI 36.0
[~2017-04-17] VITALS: Ht 167.6 cm; Wt 100.9 kg
[~2017-04-17] MED LIST changes: +ATROPINE SULFATE 0.1 MG/ML 5ML SYR IV PRN; -CPR500HP PO; +EpHEDrine SULFATE INJ 50 MG/ML AMP IV PRN; -MTR500 PO; -PRAV20TA PO
[2017-04-17 08:26] VITALS: Ht 167.6 cm; Wt 100.9 kg
--- NOTE | 2017-04-17 08:47 | Endo History and Physical ---
History & Physical Date of Service: Apr 17, 2017. Chief Complaint: LLQ ABD PAIN Referring Physician: BARI HEREDIA History of Present Illness 51 yo CM who presents for colonoscopy secondary to LLQ abdominal pain. Past Medical History Seizure Disorder, High Cholesterol, Hypertension Past Surgical History Hx Cardiac Surgery: No Hx Internal Defibrillator: No Hx Pacemaker: No Hx Abdominal Surgery: No Hx of Implantable Prosthesis: No Hx Post-Op Nausea and Vomiting: No Hx Cancer Surgery: No Hx Thoracic Surgery: No Hx Orthopedic: Yes (LT/RT KNEE SURGERY, RT KNEE I&D) Hx Urinary Tract Surgery: No Family History Colon CA Social History Smoking Status: Never Smoker Hx Substance Use: No Hx Alcohol Use: No Allergies Coded Allergies: No Known Allergies (Verified , 04/17/17) Current Medications Reported Home Medications Medications Dose Route/Sig Max Daily Dose Days Date Category Dose Instructions Pravastatin Sodium 40 Mg Tab 40 Mg PO HS 02/27/17 Reported Lamictal (Lamotrigine) 25 Mg Tab 50 Mg PO BID 12/26/14 Reported TOTAL DOSE 250MG Lamictal (Lamotrigine) 200 Mg Tab 200 Mg PO BID 12/26/14 Reported TOTAL DOSE 250MG [place] 10/325 Tab (Acetaminophen/Hydrocodone Bitart) 1 Tab Tab 1-2 Tab PO Q4H PRN 04/17/12 Reported Zestril (Lisinopril) 20 Mg Tab 20 Mg PO HS 01/15/11 Reported Vital Signs Weight (Kilograms): 100.91 Height (Feet): 5 Height (Inches): 6 Date Time Temp Pulse Resp B/P (MAP) Pulse Ox O2 Delivery O2 Flow Rate FiO2 04/17/17 08:35 36.5 58 20 141/85 (103) 96 Room Air Physical Exam General Appearance: WD/WN, no apparent distress Respiratory/Chest: Auscultation: breath sounds normal Cardiovascular: Heart Auscultation: RRR Abdomen: Bowel Sounds: normal Inspection & Palpation: soft, non-distended, no tenderness, guarding & rebound Assessment and Plan Assessment: 51 yo CM who presents for colonoscopy secondary to LLQ abdominal pain. Plan: Proceed with colonoscopy.
--- NOTE | 2017-04-17 12:00 | Discharge Instructions ---
Endoscopy Patient Instructions Date / Procedure(s) Performed Apr 17, 2017. Colonoscopy Allergy Information Coded Allergies: No Known Allergies (Verified , 04/17/17) Discharge Date / Findings Apr 17, 2017. Internal hemorrhoids Random colon biopsies Medication Instructions OK to resume all medications today as prescribed Reported Home Medications Medications Dose Route/Sig Max Daily Dose Days Date Category Dose Instructions Pravastatin Sodium 40 Mg Tab 40 Mg PO HS 02/27/17 Reported Lamictal (Lamotrigine) 25 Mg Tab 50 Mg PO BID 12/26/14 Reported TOTAL DOSE 250MG Lamictal (Lamotrigine) 200 Mg Tab 200 Mg PO BID 12/26/14 Reported TOTAL DOSE 250MG [place] 10/325 Tab (Acetaminophen/Hydrocodone Bitart) 1 Tab Tab 1-2 Tab PO Q4H PRN 04/17/12 Reported Zestril (Lisinopril) 20 Mg Tab 20 Mg PO HS 01/15/11 Reported Provider Instructions Activity Restrictions - No exercising or heavy lifting for 24 hours. - Do not drink alcohol the day of the procedure. - Do not drive a car or operate machinery until the day after the procedure. - Do not make any important decisions or sign important papers in 24 hours after the procedure. Following Day: - Return to full activity which may include returning to work/school. Diet Start your diet with liquids and light foods (jello, soup, juice, toast). Then eat your usual diet if not nauseated. Treatment For Common After Affects For mild abdominal pain, bloating, or excessive gas: - Rest - Eat lightly - Lie on right side Follow-Up Information Follow-up with BARI HEREDIA as scheduled Anesthesia Information What You Should Know You have had a procedure that required some medicine to reduce anxiety and discomfort. This treatment is called moderate sedation. After receiving the treatment, you may be sleepy, but you will be able to breathe on your own. The effects of the treatment may last for several hours. Follow these instructions along with Activity/Diet recommendations noted above: * Do NOT do anything where dizziness or clumsiness would be dangerous. * Rest quietly at home today, then you can be up and about tomorrow. * Have a responsible person stay with you the rest of today. * You may have had an I.V. today. If so, you may take the dressing off later today. Recommendations Call your doctor if: * Trouble breathing * Continuous vomiting for more than 24 hours * Temperature above 101 degrees * Severe abdominal pain or bloating * Pain not relieved by pain medicine ordered * There is increased drainage or redness from any incision * A large amount of rectal bleeding greater than 2-3 tablespoons. (If you had a polyp/s removed or have hemorrhoids, a small amount of blood - from the rectum is to be expected.) * You have any unanswered questions or concerns. IN THE EVENT OF A SERIOUS EMERGENCY, GO TO THE NEAREST EMERGENCY ROOM Your discharge instructions were prepared by provider Luis Fernando Peters. Patient Instructions Signature Page Maximus Armstrong Patient (or Guardian) Signature/Date: I have read and understand the instructions given to me by my caregivers. Caregiver/RN/Doctor Signature/Date: The above-named patient and/or guardian has received patient instructions on this date. + Original Patient Signature Page (only) stays with chart. Please make copy for patient.
[2017-04-17 12:38] VITALS: BP 142/79; PULSE 53; O2SAT 96
--- NOTE | 2017-04-17 12:55 | Anesthesiology Progress Note ---
Anesthesia Post Op Note Date & Time Apr 17, 2017 at 12:55 Vital Signs Pain Intensity: 2 Vital Signs Past 12 Hours Date Time Temp Pulse Resp B/P (MAP) Pulse Ox O2 Delivery O2 Flow Rate FiO2 04/17/17 12:38 53 20 142/79 (100) 96 Room Air 04/17/17 12:23 50 20 111/58 (75) 96 Room Air 04/17/17 12:09 58 20 103/62 (76) 99 Nasal Cannula 3 04/17/17 08:35 36.5 58 20 141/85 (103) 96 Room Air Notes Mental Status: alert / awake / arousable, participated in evaluation Pt Amnestic to Procedure: Yes Nausea / Vomiting: adequately controlled Pain: adequately controlled Airway Patency, RR, SpO2: stable & adequate BP & HR: stable & adequate Hydration State: stable & adequate Anesthetic Complications: no major complications apparent
--- NOTE | 2017-04-17 14:00 | GI REPORT ---
Procedure Date: 04/17/2017 11:06 AM Procedure: Colonoscopy Indications: Abdominal pain in the left lower quadrant Medicines: Monitored Anesthesia Care Complications: No immediate complications. Estimated Blood Loss: Estimated blood loss: none. Procedure: Pre-Anesthesia Assessment: - Prior to the procedure, a History and Physical was performed, and patient medications and allergies were reviewed. The patient's tolerance of previous anesthesia was also reviewed. The risks and benefits of the procedure and the sedation options and risks were discussed with the patient. All questions were answered, and informed consent was obtained. Prior Anticoagulants: The patient has taken no previous anticoagulant or antiplatelet agents. ASA Grade Assessment: II - A patient with mild systemic disease. After reviewing the risks and benefits, the patient was deemed in satisfactory condition to undergo the procedure. After I obtained informed consent, the scope was passed under direct vision. Throughout the procedure, the patient's blood pressure, pulse, and oxygen saturations were monitored continuously. The scope was introduced through the anus and advanced to the terminal ileum. The colonoscopy was performed without difficulty. The patient tolerated the procedure well. The quality of the bowel preparation was good. The terminal ileum, ileocecal valve, appendiceal orifice, and rectum were photographed. Findings: The perianal and digital rectal examinations were normal. Non-bleeding internal hemorrhoids were found during retroflexion. The hemorrhoids were small. Several random biopsies were obtained with cold forceps for histology in the entire colon. Impression: - Non-bleeding internal hemorrhoids. - Several random biopsies were obtained in the entire colon. Recommendation: - Resume previous diet. - Continue present medications. - Repeat colonoscopy for surveillance based on pathology results. - Return to primary care physician as previously scheduled. Luis Fernando Peters, 04/17/2017 12:08:40 PM This report has been signed electronically. Note Initiated On: 04/17/2017 11:06 AM I attest to the content of the Intraoperative Record and orders documented therein, exceptions below
== END | disposition home or self-care (01) ==
LOC: C.GI 07:53
PROVIDERS: ATTEND Internal Medicine
DX: K64.8 Other hemorrhoids (principal); R10.32 Left lower quadrant pain; I10 Essential (primary) hypertension; E78.00 Pure hypercholesterolemia, unspecified; G40.909 Epilepsy, unspecified, not intractable, without status epilepticus; Z80.0 Family history of malignant neoplasm of digestive organs; Z79.899 Other long term (current) drug therapy

== ENCOUNTER 2024-05-02 17:00 | Observation (INO) ==
--- NOTE | 2024-05-02 17:10 | ED Triage Note ---
Date of Service May 02, 2024 Provider in Triage Author: Harriet Michael History of Present Illness This patient was briefly evaluated while in triage. An abbreviated physical exam was performed. This patient is a 58-year-old Male who presents to the ED for evaluation of chest pain x 2 hours. Pain radiates down left arm. Reports shortness of breath. Denies nausea/vomitnig. Physical Exam GENERAL: Non-toxic and in no acute distress. HEENT: Pupils equal. No obvious scleral icterus. HEART: Regular rate and rhythm. LUNGS: Clear to auscultation. No accessory muscle use. NEURO: Alert and oriented. No obvious neurological deficits on quick neuro exam. Initial orders for labs and / or imaging were placed and patient was placed in the waiting area until a bed is available. Please see further documentation for the full ED course.
[2024-05-02 17:33] LABS: Basophils # (auto) 0.05 K/uL (0.00-0.20); Basophils % (auto) 0.6 %; Eosinophils # (auto) 0.09 K/uL (0.00-0.50); Eosinophils % (auto) 1.1 %; Hematocrit (blood only) 42.6 % (42.0-52.0); Hemoglobin 14.3 g/dl (14.0-18.0); Immature Granulocytes # (auto) 0.01 K/uL (0.01-0.20); Immature Granulocytes % (auto) 0.1 %; Lymphocytes # (auto) 2.52 K/uL (1.20-3.40); Lymphocytes % (auto) 30.2 %; Mean Corpuscular Hgb Conc 33.6 g/dL (32.0-36.0); Mean Corpuscular Volume 92.2 fL (80.0-100.0); Mean Platelet Volume 9.9 fL (9.4-12.4); Monocytes # (auto) 0.64 K/uL (0.11-0.59); Monocytes % (auto) 7.7 %; Neutrophils # (auto) 5.04 K/uL (1.40-6.50); Neutrophils % (auto) 60.3 %; Platelet Count 258 K/uL (130-400); RDW Coefficient of Variation 12.9 % (11.5-14.5); RDW Standard Deviation 43.3 fL (36.4-46.3); Red Blood Count 4.62 M/uL (4.70-6.10); White Blood Count 8.35 K/ul (4.8-10.8)
[2024-05-02 17:51] LABS: Albumin Globulin Ratio 1.9 (0.9-2); BUN Creatinine Ratio 16.9 (10-20); Bilirubin,Total 0.4 mg/dl (0.2-1.0); Calcium 9.6 mg/dl (8.6-10.3); Creatinine Clr Calc Pharmacy 98.5 ml/min; Globulin 2.6 gm/dl (2.5-4.0); Potassium 3.7 mmol/L (3.5-5.1); Total Protein 7.6 gm/dl (6.0-8.3)
[2024-05-02 17:57] LABS: Troponin I High Sensitivity 7.9 pg/ml (0-20)
--- NOTE | 2024-05-02 18:08 | Emergency Department Note ---
Impression & Plan Chest pain ED Provider Note NAME: TIMMY THOMPSON AGE: 58 SEX: M : 1965 ARRIVES VIA: Walk-In INFORMANT: Patient, ED PROVIDER(S): Ian Mora DO CHIEF COMPLAINT: Chest pain HPI: The patient is a 58-year-old male who presented to the emergency department for an evaluation of left-sided chest pain. The patient describes left-sided chest pain that began today approximately 3 PM. He states he was at work when this occurred. He denies having any lower extremity swelling or pain. He denies having any abdominal pain. The pain did radiate to his left arm. The patient states pain is not worsened with exertion. The patient was not seen by provider but came to the emergency department for further evaluation. The patient denies having any back pain. He does not have a history of coronary artery disease. ROS: See above HPI for pertinent positives & negatives. A total of 10 systems reviewed and were otherwise negative. PAST MEDICAL HISTORY: See Below PAST SURGICAL HISTORY: See Below FAMILY HISTORY: See Below SOCIAL HISTORY: See Below HOME MEDICATIONS: See Below ALLERGIES: See Below VITALS: See Below PHYSICAL EXAMINATION: GENERAL: Patient is awake alert in no acute distress patient is resting comfortably and showing no signs of anxiety EYES: The conjunctivae are clear. The pupils are round and reactive. EARS, NOSE, MOUTH AND THROAT: The nose is without any evidence of any deformity. NECK: The neck is nontender and supple. RESPIRATORY: Normal respiratory effort is noted there is no evidence of wheezing rhonchi or rales CARDIOVASCULAR: Regular rate and rhythm noted there no murmurs rubs or gallops normal S1 normal S2. GASTROINTESTINAL: The abdomen is soft. Abdomen is nontender. MUSCULOSKELETAL/EXTREMITIES: There is no evidence of gross deformity full range of motion is noted in the hips and shoulders. SKIN: There is no obvious evidence of any rash. There are no petechiae, pallor or cyanosis noted. NEUROLOGIC: Patient is awake alert and oriented x3 MEDICAL DECISION MAKING: The patient is a 58-year-old male who presented to the emergency department for an evaluation of chest pain. The patient has been having left-sided chest pain over the course of the last few days. I discussed the patient's laboratory and radiographic studies with him. I discussed the limitations of the emergency department workup for chest pain with him. Ultimately the patient was felt to be higher risk with a heart score of 4. He has multiple risk factors for coronary artery disease. For this reason I did discuss his condition with the on-call [facility] hospitalist. The patient was treated with aspirin. Serial troponins were negative. The patient was agreeable with the plan. Triage Nursing notes reviewed. Prior medical records reviewed Vital Signs: reviewed and remarkable for no significant abnormalities Differential diagnosis: Cardiac ischemia, aortic dissection, pulmonary embolism, pneumothorax, pneumonia, pericarditis, myocarditis, esophageal rupture, GERD, cholecystitis, pancreatitis, musculoskeletal, as well as other pathologies. ER treatment provided: See below Diagnostics interpreted by me: ECG: EKG was obtained in the emergency department. My interpretation is normal sinus rhythm at 80 bpm. There was no ectopy. There is no acute ST segment abnormalities noted. This was compared to a tracing from August 08, 2020. No changes were noted. Cardiac Monitoring: An order was placed for continuous cardiac monitoring. The monitor shows a rate of 61 bpm with sinus rhythm. Laboratory studies: As stated above and show below. Imaging studies: See below. Radiographic imaging was reviewed by myself Consultation(s): I discussed this case with Dr. Reddy. Past Med/Surg History Problem List (Updated 05/02/24 @ 21:58 by Ian Mora DO) Chest pain (Acute) RENETTA (generalized anxiety disorder) (Chronic) Change in bowel habits Insufficient sleep syndrome Nocturnal hypoxemia GERD (gastroesophageal reflux disease) Smokeless tobacco use (Acute) Erectile dysfunction Gastroesophageal reflux disease with esophagitis without hemorrhage Essential hypertension (Acute) Esophageal reflux disease (Chronic) Hypersomnolence (Acute) Obstructive sleep apnea (Acute) IBS (irritable bowel syndrome) (Acute) Hyperglycemia (Acute) Hypercholesterolemia (Acute) Chronic mixed headache syndrome (Acute) BPH with obstruction/lower urinary tract symptoms (Acute) Medical History History of cerebral aneurysm Tendinitis of left rotator cuff Seborrheic keratoses Garcia hemangioma Cyst, dermoid, face Subarachnoid 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 (~2010) Seizure, epileptic (~2010) 2010 grand mal--found to have cerebral aneurysm--repaired, on lamictal, sometimes forgets things, otherwise no deficits--no neurologist History of DVT (deep vein thrombosis) right arm, 1 yr after cerebral aneurysm repair--was on blood thinner for 1 yr after, then taken off Hearing deficit Bradycardia HR 50s/low 60s History of COVID-19 diagnosed 05/14/2020 @ [facility]--high fever 104, severe headache, body aches, loss of taste/smell (still no smell), loss of appetite Aneurysm of unspecified site (09/28/12) Tubular adenoma of colon Diverticulitis Surgical History History of colonoscopy with polypectomy History of esophagogastroduodenoscopy (EGD) History of tooth extraction History of sinus surgery History of cerebral aneurysm repair (~2010) [facility]--Dr. Baptiste History of angioplasty ? 1999 @ [facility]--no stents H/O arthroscopy of knee bilt knees Family History Grandmother Breast cancer Mother Heart disease Myocardial infarction Hypertension Uncle Diabetes Alzheimer disease Brother Kidney stones Other No family history of adverse response to anesthesia Denies family history of Colon cancer Ovarian cancer Prostate cancer Social History Smoking Status: Never smoker Second Hand Exposure: No; Do You Dip or Chew Tobacco: No; Hx Alcohol Use: No Hx Substance Use: No Preferred Language: Welsh Communication Ability: Effective Visual Impairment: No Limitations Hearing Ability: Hard of Hearing 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 Beliefs That Will Affect Care: None marital status: Current Living Situation: Spouse and Family Current Living Situation Comment: Lives with current occupational status: employed current occupation: [employer] Feels Safe at Home: Yes Childhood Exposure to Second-Hand Smoke: Yes Diet: regular Dental Care, Regularly: Yes Physical Activity Frequency: 1-2 Times per Week Seatbelt Use: always Sunscreen Use: Yes Assistive Devices: Denture - Upper, Glasses and Hearing Aid - Bilateral Allergies Allergies Allergy/AdvReac Type Severity Reaction Status Date / Time sildenafil [From Viagra] Allergy Severe Hypotension Verified 03/28/24 14:36 tadalafil [From Cialis] Allergy Severe Hypotension Verified 03/28/24 14:36 clindamycin AdvReac Severe Abdominal Verified 03/28/24 14:36 Pain clavulanic acid AdvReac Intermediate Diarrhea Verified 03/28/24 14:36 [From Augmentin] Home Meds Previous Rx's Medication Instructions Recorded rosuvastatin 5 mg tablet (Crestor) 5 mg PO DAILY #30 tabs 09/07/23 topiramate 25 mg tablet 25 mg PO DAILY #90 tabs 10/01/23 lamotrigine 25 mg tablet See Rx Instructions .Route 12/08/23 .COMPLEX #120 tabs alfuzosin 10 mg tablet,extended 10 mg PO DAILY #90 tabs 01/21/24 release 24 hr sildenafil (pulm.hypertension) 20 20 mg PO ONCE PRN sexual activity 01/21/24 mg tablet #60 tabs pantoprazole 40 mg tablet,delayed 40 mg PO BID #180 tabs 02/05/24 release buspirone 10 mg tablet 10 mg PO BID #180 tabs 02/09/24 lisinopril 20 mg tablet See Rx Instructions .Route 02/09/24 .COMPLEX #90 tabs quetiapine 50 mg tablet (Seroquel) 50 mg PO HS #90 tabs 02/09/24 lamotrigine 200 mg tablet See Rx Instructions .Route 03/11/24 .COMPLEX #180 tabs hydrocodone 10 mg-acetaminophen 1 - 2 tab PO TID PRN pain #60 tabs 04/20/24 325 mg tablet Results & Data (ED) Vital Signs Vital Signs - 24 hr 05/02/24 17:08 05/02/24 18:05 05/02/24 18:05 Temperature 36.6 C Temperature Source Skin Pulse Rate 75 Pulse Rate [Apical] 66 Respiratory Rate 18 18 Respiratory Effort / Characteristics Non-Labored Spontaneous Blood Pressure 178/107 H Blood Pressure [Right Arm] 160/97 H Blood Pressure Mean 130 Blood Pressure Mean [Right Arm] 118 Blood Pressure Position [Right Arm] Lying Pulse Oximetry 96 93 93 Oxygen Delivery Method Room Air Room Air Room Air Sepsis Recent Fever Within 48 Hours No Sepsis New/Unexplained Change in Mental Status No Sepsis Action Taken by Nursing No Action Required 05/02/24 18:05 05/02/24 18:08 05/02/24 20:00 Temperature Temperature Source Pulse Rate 66 68 Pulse Rate [Apical] 61 Respiratory Rate 18 18 Respiratory Effort / Characteristics Non-Labored Spontaneous Blood Pressure Blood Pressure [Right Arm] 152/94 H Blood Pressure Mean Blood Pressure Mean [Right Arm] 113 Blood Pressure Position [Right Arm] Lying Pulse Oximetry 93 98 Oxygen Delivery Method Room Air Room Air Sepsis Recent Fever Within 48 Hours Sepsis New/Unexplained Change in Mental Status Sepsis Action Taken by Half-Way Medications Current Medication List: was personally reviewed by me Laboratory Data Attestation: I reviewed the patient's lab results. 05/02/24 17:17 05/02/24 17:17 Lab Results 05/02/24 05/02/24 Range/Units 17:17 20:08 WBC 8.35 (4.8-10.8) K/ul RBC 4.62 L (4.70-6.10) M/uL Hgb 14.3 (14.0-18.0) g/dl Hct 42.6 (42.0-52.0) % MCV 92.2 (80.0-100.0) fL MCH 31.0 (25.0-34.0) pg MCHC 33.6 (32.0-36.0) g/dL RDW Std Deviation 43.3 (36.4-46.3) fL RDW Coeff of Teri 12.9 (11.5-14.5) % Plt Count 258 (130-400) K/uL MPV 9.9 (9.4-12.4) fL Immature Gran % (Auto) 0.1 % Neut % (Auto) 60.3 % Lymph % (Auto) 30.2 % [place] % (Auto) 7.7 % Eos % (Auto) 1.1 % Baso % (Auto) 0.6 % Neut # (Auto) 5.04 (1.40-6.50) K/uL Lymph # (Auto) 2.52 (1.20-3.40) K/uL [place] # (Auto) 0.64 H (0.11-0.59) K/uL Eos # (Auto) 0.09 (0.00-0.50) K/uL Baso # (Auto) 0.05 (0.00-0.20) K/uL Immature Gran # (Auto) 0.01 (0.01-0.20) K/uL Sodium 140 (136-145) mmol/L Potassium 3.7 (3.5-5.1) mmol/L Chloride 108 H (98-107) mmol/L Carbon Dioxide 26 (21-32) mmol/L Anion Gap 6 (3-11) BUN 15 (6-23) mg/dl Creatinine 0.89 (0.6-1.4) mg/dl Est Cr Clr Drug Dosing 98.5 ml/min eGFR 98.11 BUN/Creatinine Ratio 16.9 (10-20) Glucose 78 (70-99(Fasting)) mg/dl Calcium 9.6 (8.6-10.3) mg/dl Total Bilirubin 0.4 (0.2-1.0) mg/dl AST 21 (13-39) U/L ALT 27 (7-52) U/L Alkaline Phosphatase 73 (34-104) U/L Troponin I High Sens 7.9 5.9 (0-20) pg/ml Total Protein 7.6 (6.0-8.3) gm/dl Albumin 5.0 (3.4-5.0) gm/dl Globulin 2.6 (2.5-4.0) gm/dl Albumin/Globulin Ratio 1.9 (0.9-2) Administered Medications Discontinued Medications Aspirin (Aspirin Chew 324 Mg) 324 mg PO NOW STA Stop: 05/02/24 18:05 Last Admin: 05/02/24 18:31 Dose: 324 mg Documented By: SUSAN Imaging Data Attestation: I personally reviewed and interpreted this imaging study as follows: My Impression: 1 view chest x-ray was obtained in the emergency department. My interpretation is no free air or definite infiltrate, final report below. Radiologist's Impression: Chest X-Ray 05/02/24 17:12 INDICATION: Cough. TECHNIQUE: Frontal radiograph of the chest. COMPARISON: None. FINDINGS: Low inspiratory depth. Mild cardiomegaly. Pulmonary vasculature appear within normal limits. Subsegmental atelectasis/airspace disease in the left lower lobe. No pleural effusion or pneumothorax. No acute osseous abnormality evident. IMPRESSION: Subsegmental atelectasis/airspace disease in the left lower lobe. Electronically signed by Guicho Mac 05-02-2024 6:19 PM Discharge Plan Visit Data Chief Complaint: Chest Pain Stated Complaint: CHEST PAIN, SOB ED Provider: Ian Mora Discharge Problem: Chest pain Patient Disposition: Being Evaluated by Hospitalist Forms Stand Alone Forms: My [facility] Prescriptions Prescriptions: No Action rosuvastatin [Crestor] 5 mg tablet 5 mg PO DAILY Qty: 30 2RF lamotrigine 25 mg tablet See Rx Instructions .ROUTE .COMPLEX Qty: 120 5RF Dose Instruction: TAKE TWO TABLETS BY MOUTH TWICE A DAY Rx Instructions: TAKE TWO TABLETS BY MOUTH TWICE A DAY pantoprazole 40 mg tablet,delayed release (DR/EC) 40 mg PO BID Qty: 180 3RF lamotrigine 200 mg tablet See Rx Instructions .ROUTE .COMPLEX Qty: 180 1RF Dose Instruction: TAKE ONE TABLET BY MOUTH TWICE A DAY Rx Instructions: TAKE ONE TABLET BY MOUTH TWICE A DAY hydrocodone-acetaminophen 10-325 mg tablet 1 - 2 tab PO TID PRN (Reason: pain) Qty: 60 0RF alfuzosin 10 mg tablet extended release 24 hr 10 mg PO DAILY Qty: 90 3RF sildenafil (pulm.hypertension) 20 mg tablet 20 mg PO ONCE PRN (Reason: sexual activity) Qty: 60 3RF Rx Instructions: take 1- to 5 tabs as needed for sexual activity lisinopril 20 mg tablet See Rx Instructions .ROUTE .COMPLEX Qty: 90 3RF Dose Instruction: TAKE 1 TABLET BY MOUTH AT BEDTIME Rx Instructions: TAKE 1 TABLET BY MOUTH AT BEDTIME buspirone 10 mg tablet 10 mg PO BID Qty: 180 1RF quetiapine [Seroquel] 50 mg tablet 50 mg PO HS Qty: 90 3RF topiramate 25 mg tablet 25 mg PO DAILY Qty: 90 3RF Referrals Referrals: Berhane Humphrey III, CRNP [Primary Care Provider] - Discharge Problem: Chest pain Qualifiers: Chest pain type: unspecified Qualified Code(s): R07.9 - Chest pain, unspecified
--- NOTE | 2024-05-02 18:20 | XRay Report ---
INDICATION: Cough. TECHNIQUE: Frontal radiograph of the chest. COMPARISON: None. FINDINGS: Low inspiratory depth. Mild cardiomegaly. Pulmonary vasculature appear within normal limits. Subsegmental atelectasis/airspace disease in the left lower lobe. No pleural effusion or pneumothorax. No acute osseous abnormality evident. IMPRESSION: Subsegmental atelectasis/airspace disease in the left lower lobe. Electronically signed by Guicho Mac 05-02-2024 6:19 PM
[2024-05-02] MEDS: ASPIRIN CHEW 324 MG PO STA (18:31)
[2024-05-02] MEDS ORDERED: ACETAMINOPHEN 325 MG TAB PO PRN (21:56)
--- NOTE | 2024-05-02 22:04 | History & Physical Report ---
Date of Service May 02, 2024 Assessment & Plan (1) Chest pain: Plan: - Trop 7.9-> 5.9 - EKG without any acute ischemic changes - monitor on telemetry, trend troponin - TTE pending - s/p 324 ASP in ED - Nitro x 1 given with no improvement in pain, will give 1mg morphine and see if that relieves pain Plan Chronic Stable: RENETTA- continue BuSpar, Seroquel HS History of Cerebral Aneurysm/Seizure/Headaches- continue lamotrigine, Cecil prn, topiramate HTN: continue lisinopril GERD: continue pantoprazole HLD: continue rosuvastatin SAL: has not tolerated CPAP in the past BPH: continue alfuzosin; sidenophil listed but states that he not taken recently, not currently on Admission and Anticipated Discharge Date Admission Date: Diet: Heart Healthy Code: Full VTE Prophylaxis: Lovenox Dispo: Med Information Assurance History of Present Illness Primary Care Provider: Berhane Humphrey III, YAN 58 year old male with a past medical history of RENETTA, GERD, HTN, HLD presenting with concern for chest pain. Started at about 1300 this afternoon. Intermittently worse. Left sided- upper chest. Not reproducible. Radiates down left arm. Denies any associated symptoms- diaphoresis, nausea, dyspnea. Not worse with exertion, worse when sitting at rest. Denies recent illness-cough, congestion. Pain is not pleuritic. Rates a 5/10 at the moment. Notes multiple prior stress tests which were reportedly negative and a cardiac cath in 1999- w [facility] did not show any significant blockages per pt. ED Course Significant for: CBC, CMP wnl. Troponin 7.9-> 5.9. CXR with LLL atelectasis. EKG without acute ischemic changes, when compared with prior from 2020 largely unchanged. Allergies Allergy/AdvReac Type Severity Reaction Status Date / Time sildenafil [From Viagra] Allergy Severe Hypotension Verified 03/28/24 14:36 tadalafil [From Cialis] Allergy Severe Hypotension Verified 03/28/24 14:36 clindamycin AdvReac Severe Abdominal Verified 03/28/24 14:36 Pain clavulanic acid AdvReac Intermediate Diarrhea Verified 03/28/24 14:36 [From Augmentin] Home Medications Medication Instructions Recorded Confirmed Type rosuvastatin 5 mg tablet (Crestor) 5 mg PO DAILY #30 tabs 09/07/23 03/28/24 Rx topiramate 25 mg tablet 25 mg PO DAILY #90 tabs 10/01/23 03/28/24 Rx lamotrigine 25 mg tablet See Rx Instructions .Route 12/08/23 03/28/24 Rx .COMPLEX #120 tabs alfuzosin 10 mg tablet,extended 10 mg PO DAILY #90 tabs 01/21/24 03/28/24 Rx release 24 hr sildenafil (pulm.hypertension) 20 20 mg PO ONCE PRN sexual activity 01/21/24 03/28/24 Rx mg tablet #60 tabs pantoprazole 40 mg tablet,delayed 40 mg PO BID #180 tabs 02/05/24 03/28/24 Rx release buspirone 10 mg tablet 10 mg PO BID #180 tabs 02/09/24 03/28/24 Rx lisinopril 20 mg tablet See Rx Instructions .Route 02/09/24 03/28/24 Rx .COMPLEX #90 tabs quetiapine 50 mg tablet (Seroquel) 50 mg PO HS #90 tabs 02/09/24 03/28/24 Rx lamotrigine 200 mg tablet See Rx Instructions .Route 03/11/24 03/28/24 Rx .COMPLEX #180 tabs hydrocodone 10 mg-acetaminophen 1 - 2 tab PO TID PRN pain #60 tabs 04/20/24 Rx 325 mg tablet prednisone 10 mg tablet 10 mg PO DIRECTED #15 tabs 05/03/24 Rx Past Med/Surg History Problem List (Updated 05/02/24 @ 21:58 by Ian Mora DO) Chest pain (Acute) RENETTA (generalized anxiety disorder) (Chronic) Change in bowel habits Insufficient sleep syndrome Nocturnal hypoxemia GERD (gastroesophageal reflux disease) Smokeless tobacco use (Acute) Erectile dysfunction Gastroesophageal reflux disease with esophagitis without hemorrhage Essential hypertension (Acute) Esophageal reflux disease (Chronic) Hypersomnolence (Acute) Obstructive sleep apnea (Acute) IBS (irritable bowel syndrome) (Acute) Hyperglycemia (Acute) Hypercholesterolemia (Acute) Chronic mixed headache syndrome (Acute) BPH with obstruction/lower urinary tract symptoms (Acute) Medical History History of cerebral aneurysm Tendinitis of left rotator cuff Seborrheic keratoses Garcia hemangioma Cyst, dermoid, face Subarachnoid 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 (~2010) Seizure, epileptic (~2010) 2010 grand mal--found to have cerebral aneurysm--repaired, on lamictal, sometimes forgets things, otherwise no deficits--no neurologist History of DVT (deep vein thrombosis) right arm, 1 yr after cerebral aneurysm repair--was on blood thinner for 1 yr after, then taken off Hearing deficit Bradycardia HR 50s/low 60s History of COVID-19 diagnosed 05/14/2020 @ [facility]--high fever 104, severe headache, body aches, loss of taste/smell (still no smell), loss of appetite Aneurysm of unspecified site (09/28/12) Tubular adenoma of colon Diverticulitis Surgical History History of colonoscopy with polypectomy History of esophagogastroduodenoscopy (EGD) History of tooth extraction History of sinus surgery History of cerebral aneurysm repair (~2010) [facility]--Dr. Baptiste History of angioplasty ? 1999 @ [facility]--no stents H/O arthroscopy of knee bilt knees Family History Grandmother Breast cancer Mother Heart disease Myocardial infarction Hypertension Uncle Diabetes Alzheimer disease Brother Kidney stones Other No family history of adverse response to anesthesia Denies family history of Colon cancer Ovarian cancer Prostate cancer Social History Smoking Status: Never smoker Second Hand Exposure: No; Do You Dip or Chew Tobacco: No; Hx Alcohol Use: No Hx Substance Use: No Preferred Language: Latvian Communication Ability: Effective Visual Impairment: No Limitations Hearing Ability: Hard of Hearing 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 Beliefs That Will Affect Care: None marital status: Current Living Situation: Spouse and Family Current Living Situation Comment: , daughter, grandson current occupational status: employed current occupation: [employer] Feels Safe at Home: Yes Childhood Exposure to Second-Hand Smoke: Yes Diet: regular Dental Care, Regularly: Yes Physical Activity Frequency: 1-2 Times per Week Seatbelt Use: always Sunscreen Use: Yes Assistive Devices: None Review of Systems Review of Systems: As per above Physical Exam Physical Exam: Constitutional: well-appearing, no acute distress HEENT: NCAT, no conjunctival injection CV: regular rhythm, no murmur appreciated, extremities well-perfused, no LE edema Resp: CTABL, no wheezes/rales/rhonchi appreciated, no increased work of breathing GI: soft, nondistended, nontender MSK: no gross deformities appreciated Skin: warm, dry, no rash appreciated Neuro: alert, oriented, no focal neurologic deficit appreciated Results & Data Results & Data Vital Signs (Past 12 Hours) Vital Signs Temp Pulse Pulse Resp BP BP Pulse Ox 05/02/24 20:00 61 18 152/94 H 98 05/02/24 18:08 68 05/02/24 18:05 66 18 93 05/02/24 18:05 66 18 160/97 H 93 05/02/24 18:05 93 05/02/24 17:08 36.6 C 75 18 178/107 H 96 O2 Del Method 05/02/24 20:00 Room Air 05/02/24 18:08 05/02/24 18:05 Room Air 05/02/24 18:05 Room Air 05/02/24 18:05 Room Air 05/02/24 17:08 Room Air Supervising Physician Co-Signing Physician Notes Attending addendum: I have physically seen this patient, have supervised the medical residents activities, and agree with the H&P unless as otherwise noted. Assessment and Plan: Chest pain/hypertension- The patient will be admitted to telemetry for serial cardiac enzymes, serial EKG's, cardiac rhythm monitoring and a 2-D echocardiogram with Dopplers. Troponin initially 7.9, follow-up 5.9 Received aspirin 324 mg Continue lisinopril 20 mg daily Due to risk factors, will need a stress echocardiogram prior to discharge Hyperlipidemia- Continue rosuvastatin Check a fasting lipid panel and hemoglobin A1c Generalized anxiety disorder/history of cerebral aneurysm/seizure/headaches- Continue buspirone, lamotrigine, quetiapine topiramate Resident Activity Tracking Resident Involvement: Resident Care Provided Care Provided: Adult Hospital Medicine (1) Chest pain Chest pain type: unspecified Qualified Code(s): R07.9 - Chest pain, unspecified
[2024-05-02] MEDS: NITROGLYCERIN SL 0.4 MG/TAB TAB SL PRN (22:26)
[2024-05-02] MEDS: MoRPHine SULFATE 2 MG/ML CARP IV ONE (22:55)
[2024-05-03] MEDS: HYDROcodone/ACETAMINOPHEN 10/325 TAB PO PRN (00:41)
[2024-05-03] MEDS: lamoTRIgine 100 MG TAB PO SCH (00:42)
[2024-05-03] MEDS: lisinopril 20 MG TAB PO SCH (00:42)
[2024-05-03] MEDS: lamoTRIgine 25 MG TAB PO SCH (00:43)
[2024-05-03] MEDS: QUEtiapine FUMARATE 25 MG TABLET PO SCH (00:43)
[2024-05-03] MEDS: PANTOprazole 40 MG TAB PO SCH (00:44)
[2024-05-03] MEDS: MoRPHine SULFATE 2 MG/ML CARP IV STA (01:56)
[2024-05-03] MEDS: ONDANSETRON INJ 2 MG/ML 2 ML VIAL IV STA (01:56)
[2024-05-03] MEDS: TOPIRAMATE 25 MG TAB PO SCH (07:24)
[2024-05-03] MEDS: TAMSULOSIN HCL 0.4 MG CAP PO SCH (07:24)
[2024-05-03] MEDS: ROSUVASTATIN CALCIUM 5 MG TAB PO SCH (07:25)
[2024-05-03] MEDS: busPIRone 5 MG TAB PO SCH (07:25)
[2024-05-03 07:44] LABS: Basophils # (auto) 0.06 K/uL (0.00-0.20); Eosinophils # (auto) 0.19 K/uL (0.00-0.50); Eosinophils % (auto) 3.1 %; Hematocrit (blood only) 38.6 % (42.0-52.0); Immature Granulocytes # (auto) 0.01 K/uL (0.01-0.20); Immature Granulocytes % (auto) 0.2 %; Lymphocytes # (auto) 2.98 K/uL (1.20-3.40); Lymphocytes % (auto) 48.6 %; Mean Corpuscular Hemoglobin 31.3 pg (25.0-34.0); Mean Corpuscular Hgb Conc 33.7 g/dL (32.0-36.0); Mean Corpuscular Volume 92.8 fL (80.0-100.0); Monocytes # (auto) 0.59 K/uL (0.11-0.59); Monocytes % (auto) 9.6 %; Neutrophils % (auto) 37.5 %; Platelet Count 229 K/uL (130-400); RDW Coefficient of Variation 12.9 % (11.5-14.5); RDW Standard Deviation 44.3 fL (36.4-46.3); Red Blood Count 4.16 M/uL (4.70-6.10); White Blood Count 6.13 K/ul (4.8-10.8)
[2024-05-03 08:01] LABS: BUN Creatinine Ratio 15.5 (10-20); Calcium 8.8 mg/dl (8.6-10.3); Creatinine Clr Calc Pharmacy 89.1 ml/min; Potassium 3.8 mmol/L (3.5-5.1)
[2024-05-03 08:08] LABS: Troponin I High Sensitivity 5.2 pg/ml (0-20)
[2024-05-03] MEDS: OPTIRAY 320 125ml IV ONE (09:03)
--- NOTE | 2024-05-03 09:30 | CT Scan Report ---
CT ANGIOGRAPHY OF THE CHEST, PULMONARY EMBOLUS PROTOCOL CLINICAL HISTORY: prior h/o VTE; chest pain; r/o PE, pneumonia COMPARISON STUDY: Chest CT September 14, 2007. Chest radiograph May 02, 2024. TECHNIQUE: Following IV administration of 72 mL of Optiray, helical axial images of the chest were ob tained utilizing the pulmonary embolus protocol. Maximal intensity projections and sagittal and concha nal reformats were viewed on an independent 3D workstation. IV contrast was administered without com plication. Automated exposure control was utilized for the study. A dose lowering technique was uti lized adhering to the principles of ALARA. CT DOSE: 674.56 mGy.cm FINDINGS: No pulmonary emboli are identified. The heart is mildly enlarged. There is no pericardial effusion. No enlarged axillary, mediastinal or hilar lymph nodes are present. There are no suspicious pulmonary nodules. 4 mm right middle lobe nodule on image 98 of 209 is unchanged ET of September 13 8. Linear densities and ground glass opacities favor atelectasis. There is no consolidation to sugges t pneumonia. There is no pneumothorax or pleural effusion. Central airways are patent. There is proba ble hepatic steatosis. Upper abdomen is otherwise unremarkable. IMPRESSION: 1. No pulmonary emboli identified. 2. No consolidation to suggest pneumonia. 3. Mild cardiomegaly. ACT 112: Negative or not required by law. Electronically signed by: Leonardo Alarcon M.D. 05/03/2024 9:29 AM
[2024-05-03] MEDS: ENOXAPARIN INJ 40 MG/0.4 ML SYR SQ SCH (13:49)
--- NOTE | 2024-05-03 13:57 | Electrocardiogram Report ---
Test Reason : Blood Pressure : */* mmHG Vent. Rate : 80 BPM Atrial Rate : 80 BPM P-R Int : 184 ms QRS Dur : 102 ms QT Int : 368 ms P-R-T Axes : 41 30 37 degrees QTcB Int : 424 ms Normal sinus rhythm Minimal voltage criteria for LVH, may be normal variant Borderline ECG When compared with ECG of 08-Aug-2020 09:29, No significant change was found Confirmed by Ian Worrell ([id number]) on 05/03/2024 1:57:22 PM Referred By: REFERRED SELF Confirmed By: Ian Worrell
--- NOTE | 2024-05-03 15:00 | XCELERA ---
[id number] \\[email or web address]\[id number]___[id number]
--- NOTE | 2024-05-03 15:22 | XCELERA ---
[id number] \\[email or web address]_[email or web address]\[id number]}___[id number].pdf
[2024-05-03] MEDS: KETOROLAC 30 MG/ML VIAL IV ONE (15:43)
[2024-05-03 15:52] VITALS: BP 132/83; PULSE 48; RESP 20; TEMP 98.6; O2SAT 94
--- NOTE | 2024-05-03 21:49 | Billing Data ---
Date of Service May 03, 2024 Coding Level of Care Code 78151 INT INP/OBS CARE
--- NOTE | 2024-05-03 23:09 | XRay Report ---
Exam(s): XR LEFT SHOULDER, 2+ views EXAM: XR Left Shoulder Complete, 2 or More Views CLINICAL HISTORY: Reason for exam: L shoulder pain, ?bursitis. TECHNIQUE: Two or more views of the left shoulder. COMPARISON: No relevant prior studies available. FINDINGS: Bones/joints: Mild osteophytosis of the inferior aspect of the glenohumeral joint. The proximal humerus is intact and normally positioned. The clavicle and scapula are intact and normally aligned. No acute fracture or dislocation is seen. Soft tissues: Unremarkable. IMPRESSION: Mild osteoarthritic changes. No acute fracture or dislocation is seen. Electronically signed by: Jaylon Alvarez MD 05/03/24 23:08 PM
--- NOTE | 2024-05-03 23:09 | XRay Report ---
Exam(s): XR C SPINE EXAM: XR Cervical Spine, 2 or 3 Views CLINICAL HISTORY: Reason for exam: L shoulder pain; radicular pain from c-spine?. TECHNIQUE: Frontal and lateral views of the cervical spine. COMPARISON: No relevant prior studies available. FINDINGS: Vertebrae: Slight osteophytosis of the atlantodental joint. Mild multilevel degenerative disc disease and moderate multilevel degenerative facet arthrosis throughout the entire cervical spine. No acute fracture or subluxation is seen. The lateral masses of C1 are anatomically aligned. Probable degenerative fusion of the C2-3 level. The odontoid process is intact. Disc spaces: See above. Soft tissues: Unremarkable. IMPRESSION: 1. Mild multilevel degenerative disc disease and moderate multilevel degenerative facet arthrosis throughout the entire cervical spine. No acute fracture or subluxation is seen. 2. Probable degenerative fusion of the C2-3 level. Electronically signed by: Jaylon Alvarez MD 05/03/24 23:07 PM
== END 2024-05-03 20:06 | disposition home or self-care (01) ==
LOC: SUATTDRO → 2W 17:00 → ED 17:00 → SUATTDRO 21:56 → 2W 23:05